=== PATIENT | male | born 1955 | race Caucasian/White ===

== ENCOUNTER → 2016-06-14 08:49 | Outpatient (CLI) | payer OTHER ==
[2015-05-13 11:35] VITALS: BMI 41.4
[~2016-06-14 08:49] MED LIST: BAYER CHEWABLE81 MG PO; CONTRAVE; DIOVAN HCT 320/1 TAB PO; DIOVAN160 MG PO; GLUCOPHAGE500 MG PO; INDERAL10 MG PO; MOBIC7.5 MG PO; NORVASC5 MG PO; PAXIL20 MG PO; PLAVIX75 MG PO; PROTONIX20 MG PO; RANEXA500 MG PO; ROBAXIN500 MG; TENORMIN50 MG PO
[2016-06-14 09:51] LABS: BILIRUBIN - DIRECT 0.08 mg/dL (0.00-0.30); BILIRUBIN - INDIRECT 0.43 mg/dL (0.00-1.00); BILIRUBIN - TOTAL 0.51 mg/dL (0.2-1.3); PROTEIN - SERUM 7.1 g/dL (6.4-8.2)
== END | disposition home or self-care (01) ==
LOC: D.US 08:49
PROVIDERS: Internal Medicine Gastroenterology
DX: R74.8 Abnormal levels of other serum enzymes (principal)

== ENCOUNTER → 2016-06-15 09:04 | Outpatient (CLI) | payer OTHER ==
[2015-05-13 11:35] VITALS: BMI 41.4
[2016-06-15 10:16] LABS: AMYLASE - SERUM 36 U/L (25-115); LIPASE 193 U/L (73-393)
== END | disposition home or self-care (01) ==
LOC: D.LAB 08:00
PROVIDERS: Internal Medicine Gastroenterology
DX: K76.0 Fatty (change of) liver, not elsewhere classified (principal)

== ENCOUNTER → 2016-06-28 08:13 | Outpatient (CLI) | payer OTHER ==
[2015-05-13 11:35] VITALS: BMI 41.4
== END | disposition home or self-care (01) ==
LOC: D.CT 08:13
DX: R10.9 Unspecified abdominal pain (principal)

== ENCOUNTER → 2016-07-09 09:05 | Outpatient (CLI) | payer OTHER ==
[2015-05-13 11:35] VITALS: BMI 41.4
== END | disposition home or self-care (01) ==
LOC: D.NM 09:05
DX: R10.9 Unspecified abdominal pain (principal)

== ENCOUNTER 2016-08-19 09:50 | Outpatient (CLI) | payer OTHER ==
[~2016-08-19] VITALS: Ht 175.3 cm; Wt 130.2 kg
--- NOTE | ~2016-08-19 | HEMODYNAMI ---
PATIENT:EVER MAS MEDICAL RECORD: [id number] : 59 LOCATION:[facility].[address] [id number] ADMISSION DATE: 08/19/16 Generatedon:08/20/201612:46 Patient name: EVER MAS Patient #: [id number] SSN: : 1955 Date of study: 08/20/2016 Page: Of Hemodynamic Procedure Report Patient Data Patient Demographics Procedure consent was obtained First Name: EVER Gender: Male Last Name: CHACE : 1955 [facility] Initial: LEOPOLDO Age: 61 year(s) Patient #: [id number] Race: Additional ID: [id number] Contact details [address]: [address] [place] [address] State: [place] City: [place] Zip code: [address] Past Medical History History of disease Date Diagnosis Comments CAD Allergies: No allergy information Admission Admission Data Admission Date: 08/19/2016 Admission Time: 9:50 Room #: 2114 Height (in.): 69 BSA: 2.41 (m2) Height (cm.): 175.26 BMI: 42.4 (kg/m2) Weight (lbs.): 287.11 Weight (kg.): 130.23 Procedure Procedure Types Cath Procedure Diagnostic Procedure [facility] w/Coronaries FFR/IVUS Intra-Coronary IVUS Initial PCI Procedure Coronary Stent Initial Miscellaneous Procedures Moderate Sedation up to 30 minutes Procedure Description Procedure Date Procedure Date: 08/20/2016 Procedure Start Time: 12:25 Procedure End Time: 12:46 Procedure Staff Name Function Horace Cloud MD Performing Physician Zak Conn RT Scrub Mitchel Alvarez RN Nurse Anusha Kaufman RT Monitor Procedure Data Cath Procedure Fluoroscopy Diagnostic fluoroscopy Total fluoroscopy Time: 4.1 time: 4.1 min min Diagnostic fluoroscopy Total fluoroscopy dose: dose: 1276 mGy 1276 mGy Contrast Material Contrast Material Type Amount (ml) Isovue 300 109 Entry Location Entry Primary Successful Side Size Upsize Upsize Entry Closure Lea ccessful Closure Location (Fr) 1 (Fr) 2 (Fr) Remarks Device Remarks Radial Right 6 Fr Mechanical artery Short Compression Estimated blood loss: 10 ml Diagnostic catheters Device Type Used For End Catheter Placement Diagnostic Terumo 5Fr LV Angiography [place] 110cm catheter Diagnostic Terumo 5Fr Right Coronary [place] 110cm catheter Angiography Procedure Complications No complications Procedure Medications Medication Administration Route Dosage Oxygen NC 2 l/min Lidocaine 2% added to field 20 Heparin Flush Bag added to field 2 bags (1000units/500ml NS) 0.9% NaCl I.V. 100 ml/hr Radial Cocktail I.A. 1 syringe (Verapomil 2mg/Nitro 400mcg/Heparin 1500units) Versed I.V. 1 mg Fentanyl I.V. 50 mcg Versed I.V. 1 mg Fentanyl I.V. 50 mcg Heparin Bolus I.V. 4000 units Versed I.V. 0.5 mg Fentanyl I.V. 25 mcg Plavix P.O. 75 mg Aspirin P.O. 325 mg Hemodynamics Rest BSA: 2.41 (m2) O2 Consumption: Estimated: 285.74 (ml/min) O2 Consumption indexed : Estimated:118.56 (ml/min/m) Heart Rate: 72 (bpm) Pressure Samples Time Site Value (mmHg) Purpose Heart Use Rate(bpm) 12:28 LV 92/34,37 Snapshot 98 Snapshots Pre Cath Intra NCS Post Cath Vital Signs Time Heart Resp SPO2 etCO2 [id number] NIBP (mmHg) Rhythm Pain Sedation Rate (ipm) (%) (mmHg) (mmHg) Status Level (bpm) 12:16:09 70 16 98 0 0 147/91(115) NSR 0 (11) 10(A) , No pain 12:20:25 69 18 96 0 0 146/98(119) NSR 0 (11) 10(A) , No pain 12:24:37 70 16 94 0 0 145/95(126) NSR 0 (11) 10(A) , No pain 12:28:39 75 18 95 0 0 115/93(108) NSR 0 (11) 9(A) , No pain 12:32:43 78 18 93 0 0 129/94(125) NSR 0 (11) 9(A) , No pain 12:37:50 74 15 94 0 0 119/92(112) NSR 0 (11) 9(A) , No pain 12:41:58 77 16 94 0 0 138/87(118) NSR 0 (11) 10(A) , No pain 12:46:16 72 11 96 0 0 129/76(108) NSR 0 (11) 10(A) , No pain Medications Time Medication Route Dose Verified Delivered Reason Note s Effectiveness by by 12:12:47 Oxygen NC 2 l/min Horace Buffie used for Ai Alvarez RN procedure 12:12:55 Lidocaine 2% added 20ml Horacerey Vu for local to vial Ai Cloud MD anesthetic field 12:13:00 Heparin Flush added 2 bags Horace Vu used for Bag to Ai Cloud MD procedure (1000units/500ml field NS) 12:13:08 0.9% NaCl I.V. 100 Horace Buffie Per physician ml/hr Ai Alvarez RN 12:24:26 Versed I.V. 1 mg Horace Grullon for sedation Ai Alvarez RN 12:24:33 Fentanyl I.V. 50 mcg Horace Grullon for sedation Ai Alvarez RN 12:27:16 Radial Cocktail I.A. 1 Horace Vu for (Verapomil syringe Ai Cloud MD vasodilation 2mg/Nitro 400mcg/Heparin 1500units) 12:28:02 Versed I.V. 1 mg Horace Buffie for sedation Ai Alvarez RN 12:28:06 Fentanyl I.V. 50 mcg Horace Gomezie for sedation Ai Alvarez RN 12:33:27 Heparin Bolus I.V. 4000 Horace Grullon for units Ai Alvarez RN anticoagulation 12:36:50 Versed I.V. 0.5 mg Horace Buffie for sedation Ai Alvarez RN 12:36:54 Fentanyl I.V. 25 mcg Horace Gomezie for sedation Ai Alvarez RN 12:42:20 Plavix P.O. 75 mg Horace Gomezie for Ai Alvarez RN antiplatelet therapy 12:42:42 Aspirin P.O. 325 mg Horace Grullon for Ai Alvarez RN antiplatelet therapy Procedure Log Time Note 11:53:53 Informed consent obtained and on chart 11:54:16 Anusha Kaufman RT(R) sent for patient. Start room use. 11:54:17 Time tracking: Regular hours 11:54:21 Plan of Care:Hemodynamics will remain stable., Cardiac rhythm will remain stable., Comfort level will be maintained., Respiratory function will remain adequate., Patient/ family verbilizes understanding of procedure., Procedure tolerated without complication., Recovers from procedure without complications.. 12:04:51 Patient received from PCU to CCL 1 Alert and oriented. Tansferred to table in Supine position. 12:12:47 Oxygen 2 l/min NC was administered by Mitchel Alvarez RN; used for procedure; 12:12:55 Lidocaine 2% 20ml vial added to field was administered by Horace Cloud MD; for local anesthetic; 12:13:00 Heparin Flush Bag (1000units/500ml NS) 2 bags added to field was administered by Horace Cloud MD; used for procedure; 12:13:08 0.9% NaCl 100 ml/hr I.V. was administered by Mitchel Alvarez RN; Per physician; 12:14:58 Warm blankets applied, and madhuri hugger turned on for patient comfort. 12:14:58 Correct patient and procedure confirmed by team. 12:14:59 ECG and BP/O2 sat monitors applied to patient. 12:15:00 Vital chart was started 12:15:01 Baseline sample Acquired. 12:15:04 Rhythm: sinus rhythm 12:15:06 Full Disclosure recording started 12:15:22 H&P Date Dictated: 08/19/2016 Within 30 days and on chart.. 12:15:23 Pre-procedure instructions explained to patient. 12:15:23 Pre-op teaching completed and patient verbalized understanding. 12:15:24 Family in waiting room. 12:15:26 Patient NPO since Midnight. 12:15:36 Patient allergic to No allergy information 12:15:39 Is the patient allergic to Iodine/contrast media? No. 12:15:41 Is patient on blood thinner?No 12:15:47 Patient diabetic? Yes. 12:15:48 If diabetic: On Metformin? Yes 12:15:50 If on Metformin: Last Dose? 08/19/2016 12:15:54 Previous problem with sedation/anesthesia? No ? 12:15:55 Snore? Yes 12:15:56 Sleep apnea? No 12:15:57 Deviated septum? No 12:15:58 Opens mouth fully? Yes 12:15:59 Sticks out tongue? Yes 12:16:00 Airway obstruction? No ? 12:16:03 Dentures? Yes In 12:16:06 Pre procedure: right dorsailis pedis pulse 2+ Normal; easily identifiable; not easily obliterated 12:16:10 Modified Chevy's test Ulnar < 7 seconds 12:16:14 Patient pain scale 0/10 ?. 12:16:21 IV patent on arrival in left hand with 0.9% NaCl at [facility]. 12:17:23 Patient Height : 69 cm 12:17:32 Patient Weight : 287.11 kg 12:18:58 Right Radial & Right Groin area was prepped with chlora-prep and draped in sterile fashion 12:19:01 Alarms reviewed by R. N. 12:19:01 Sharps counted by scrub and verified by R.N. 12:19:07 Use device set Radial Dx 12:19:08 Acist Syringe opened to sterile field. 12:19:08 Medline Cath Pack opened to sterile field. 12:19:09 Bag Decanter opened to sterile field. 12:19:09 Terumo 6Fr Slender Glidesheath opened to sterile field. 12:19:09 [place] Mckin[place] 260cm J .035 wire opened to sterile field. 12:19:10 Acist Hand Control opened to sterile field. 12:19:10 Acist Manifold opened to sterile field. 12:19:11 Tegaderm 4 x 4 opened to sterile field. 12:19:11 MBrace Wrist Support opened to sterile field. 12:22:48 Final Timeout: patient, procedure, and site verified with staff and physician. All members of the team are in agreement. 12:22:53 Right Radial site verified by team. 12:22:55 Physical assessment completed. ASA score P 2 - A patient with mild systemic disease as per Horace Cloud MD. 12:22:57 Sedation plan: IV Moderate Sedation Versed, Fentanyl 12:23:06 Lab results pending. 12:24:26 Versed 1 mg I.V. was administered by Mitchel Alvarez RN; for sedation; 12:24:33 Fentanyl 50 mcg I.V. was administered by Mitchel Alvarez RN; for sedation; 12:25:20 Procedure started. 12:25:36 Zero performed for pressure channel P1 12:25:51 Local anesthetic to right radial artery with Lidocaine 2% by Horace Cloud MD.INITIAL ACCESS ONLY 12:26:22 A 6 Fr Short sheath was inserted into the Right Radial artery 12:27:10 A Diagnostic Terumo 5Fr [place] 110cm catheter was advanced over the wire and used for LV Angiography. 12:27:16 Radial Cocktail (Verapomil 2mg/Nitro 400mcg/Heparin 1500units) 1 syringe I.A. was administered by Horace Cloud MD; for vasodilation; 12::02 Versed 1 mg I.V. was administered by Mitchel Alvarez RN; for sedation; 12::06 Fentanyl 50 mcg I.V. was administered by Mitchel Alvarez RN; for sedation; 12:: LV gram done using MCKNIGHT 12::12 Injector settings: Ml/sec: 5, Volume: 15, 12:28:18 EF : 55 % 12:28:34 A Diagnostic Terumo 5Fr [place] 110cm catheter was advanced over the wire and used for Right Coronary Angiography. 12:28:56 Cordis 6FR XBLAD 3.5 guide catheter opened to sterile field. 12:29:08 Catheter removed. 12:30:04 6 Fr XBLAD 3.5 guide catheter was inserted over the wire 12:31:03 LCA angiography performed. 12:31:58 Compliance Control BasixCompak Inflation Kit opened to sterile field. 12:31:59 Forde Whisper J 300cm 0.014 guide wire opened to sterile field. 12:32:37 [place] IVUS Catheter opened to sterile field. 12:33:27 Heparin Bolus 4000 units I.V. was administered by Mitchel Alvarez RN; for anticoagulation; 12:33:40 Whisper wire advanced. 12:34:16 IVUS catheter advanced over wire. 12:36:50 Versed 0.5 mg I.V. was administered by Mitchel Alvarez RN; for sedation; 12:36:54 Fentanyl 25 mcg I.V. was administered by Mitchel Alvarez RN; for sedation; 12:37:08 IVUS pass to LAD lesion performed. 12:37:09 IVUS catheter removed over wire. 12:38:27 Inflation Number: 1 A Biofreedom 4.0 X 28 stent (No Cost Implant) was prepped and advanced across the Prox LAD. The stent was deployed at 11 GUERO for 0:04 (min:sec). 12:38:44 Stent catheter was removed intact over wire. 12:38:44 Wire removed. 12:38:45 Guide catheter removed. 12:39:05 Sheath removed intact; hemostasis achieved with Mechanical Compression to the Right Radial artery. 12:39:21 Procedure ended.(Physican Out) 12:39:35 Terumo TR Band Standard opened to sterile field. 12:41:04 Fluoroscopy time 04.10 minutes. 12:41:08 Flurop Dose total: 1276 12:41:08 Fluoroscopy dose: 1276 mGy 12:41:16 Contrast amount:Isovue 300 109ml. 12:41:17 Sharps counted by scrub and verified by R.N. 12:41:21 TR band inflated with 12cc of air. 12:41:22 Insertion/operative site no bleeding no hematoma. 12:41:29 Post right radial artery:stable, clean and dry 12:41:30 Post Procedure Pulses reassessed and unchanged 12:41:33 Post-procedure physical assessment completed. ASA score P 2 - A patient with mild systemic disease as per Horace Cloud MD. 12:41:36 Post procedure rhythm: unchanged. 12:41:38 Estimated blood loss: 10 ml 12:41:40 Post procedure instruction explained to patient.Patient verbalizes understanding. 12:41:40 Patient needs reinforcement of post procedure teaching. 12:41:58 Procedure type changed to Cath procedure, Diagnostic procedure, LHC, LHC w/Coronaries, FFR/IVUS, Intra-Coronary IVUS Initial, PCI procedure, Coronary Stent Initial, Miscellaneous Procedures, Moderate Sedation up to 30 minutes 12:42:12 Procedure Complication : No complications 12:42:20 Plavix 75 mg P.O. was administered by Mitchel Alvarez RN; for antiplatelet therapy; 12:42:42 Aspirin 325 mg P.O. was administered by Mitchel Alvarez RN; for antiplatelet therapy; 12:44:06 Procedure and supply charges have been captured, reviewed, submitted and are correct. 12:44:07 See physician's report for complete and final results. 12:46:12 Vital chart was stopped 12:46:14 Report given to Pre/Post Procedure Room. 12:46:18 Patient transfered to Pre/Post Procedure Room with Stretcher. 12:46:26 Procedure ended. 12:46:26 Full Disclosure recording stopped 12:46:30 End room use (Document Last) Intervention Summary Intervention Notes Time ActionType Lesion and Equipment Action# Pressure Duration Attributes Used 12:38:27 Place stent Prox LAD Biofreedom 1 11 00:04 4.0 X 28 stent (No Cost Implant) Device Usage Item Name Manufacture Quantity Catalog Hospital Part Current Minimal Lot# / Number Charge Number Stock Stock Serial# Code Acist Acist 1 39889 529955 373950 134879 20 Syringe Medical Systems Inc Medline Cardinal 1 [id number] 134182 86373 221829 5 Cath Pack Health Bag Microtek 1 2002S 507855 54900 072303 5 Decanter Medical Inc. Terumo 6Fr Terumo 1 [id number] 140844 350326 757975 [address] [place] [address] Mckinley 1 930320 951926 315559 975671 30 260cm J .035 wire Acist Hand Acist 1 85446 036266 870001 189170 5 Control Medical Systems Inc Acist Acist 1 21995 603365 166273 499086 5 Manifold Medical Systems Inc Tegaderm 4 3M 1 1626W 794614 459746 251797 5 x 4 MBrace Advanced 1 140-0250-00 207815 87993 878830 5 Wrist Vascular Support Dynamics Diagnostic Terumo 1 99-7851 769906 622813 024471 5 Terumo 5Fr Hartford 110cm catheter Cordis 6FR Cardinal 1 [id number] 959609 445752 676418 10 XBLAD 3.5 Health guide catheter Merit Merit 1 KN0090 667209 190935 927216 15 BasixCompak Medical Inflation Kit [place] 1 [id number] 507837 831161 897096 5 Whisper J Vascular 300cm 0.014 guide wire [place] 1 09489Y 104352 431511 579195 8 [place] IVUS Catheter Biofreedom Biosensors 1 [facility]2-0218 022259 312817 5 [id number] 4.0 X 28 [place] SA stent (No Cost Implant) Terumo TR Terumo 1 [id number] 461720 630868 047449 40 Band Standard Signature Audit [place] Stage Time Signature Unsigned Intra-Procedure 08/20/2016 Anusha 12:46:40 PM Counts RT(R) Signatures Monitor : Anusha Signature : Counts RT Date : Time : [facility] [address] [place] [address]
[~2016-08-19 09:50] MED LIST changes: -ROBAXIN500 MG; +ROBAXIN500 MG PO
[2016-08-19 10:37] LABS: TROPONIN-I < 0.017 ng/mL (0.000-0.060)
[2016-08-19 10:41] LABS: BASOPHILS 0.4 % (0-2); EOSINOPHILS 3.3 % (0-7); HEMATOCRIT 41.2 % (42.0-54.0); HEMOGLOBIN 14.3 g/dL (13.5-17.5); IMMATURE GRANULOCYTES 0.5 % (0-5); LYMPHOCYTES 20.7 % (15-50); MCH 30.2 pg (26.0-34.0); MCHC 34.7 g/dL (31.0-37.0); MCV 86.9 fL (80.0-100.0); MEAN PLATELET VOLUME 9.2 fL (7.4-10.4); NEUTROPHILS 69.1 % (40-80); PLATELET COUNT 218 10x3/uL (130-400); RBC 4.74 10x6/uL (4.20-6.10); RDW 12.7 % (11.5-14.5); WBC 7.4 10x3/uL (4.8-10.8)
[2016-08-19 10:49] LABS: ALBUMIN 4.1 g/dL (3.4-5.0); ANION GAP 13.9 mmol/L (8-16); BILIRUBIN - TOTAL 0.73 mg/dL (0.2-1.3); CALCIUM 9.2 mg/dL (8.5-10.1); CARBON DIOXIDE 26.6 mmol/L (21.0-32.0); CREATININE - SERUM 1.1 mg/dL (0.6-1.3); POTASSIUM - SERUM 4.5 mmol/L (3.5-5.1)
[2016-08-19] MEDS ORDERED: FISH OIL 1,0001 CA1 PO (13:07)
[2016-08-19 13:08] VITALS: BP 136/86; Ht 175.3 cm; Wt 130.2 kg
--- NOTE | 2016-08-19 15:36 | NUR ---
1350-RECIEVED VIA WHEELCHAIR TO ROOM FROM THE ED WITH SHORTNESS OF BREATH AND C/P. DENIES ANY AT THIS TIME OF THE ABOVE. STATES THAT HE HAD A STRESS TEST LAST WEEK AND WAS SUPPOSE TO HAVE A PROCEDURE WITH DR RAI THIS COMING SATURDAY. SALINE LOCK SEEN TO RIGHT AC, FLUSHES EASILY. ON 2L PER NC. WILL MONITOR.
[2016-08-19 15:56] VITALS: BP 124/60
--- NOTE | 2016-08-19 18:29 | NUR ---
DENIES NEEDS AT PRESENT TIME. WILL BE NPO PAST MIDNIGHT.
--- NOTE | 2016-08-19 19:00 | NUR ---
INITIAL ROUNDS MADE. PT SITTING UP IN BED WATCHING TV. DENIES NEEDS EXCEPT REQUESTING A FAN. NO CP OR SOB AT THIS TIME. WILL CONT TO MONITOR. CALL LIGHT IN REACH.
[2016-08-19 21:30] VITALS: BP 138/74
--- NOTE | 2016-08-19 22:48 | NUR ---
UP TO SHOWER WITH ASSIST
[2016-08-20 00:55] VITALS: BP 121/53
--- NOTE | 2016-08-20 05:49 | NUR ---
RESTING WELL WITH EYES CLOSED, CONT TO MONITOR.
[2016-08-20 05:55] VITALS: BP 124/80
[2016-08-20 08:00] VITALS: BP 149/91
--- NOTE | 2016-08-20 09:16 | NUR ---
RESTS IN BED. AT BS. NPO FOR [facility]. PRE-OPS GIVEN. WILL CONT. PLAN OF CARE.
--- NOTE | 2016-08-20 10:11 | HP ---
PATIENT: EVER MAS MEDICAL RECORD: [id number] ACCOUNT: [id number] LOCATION:[facility] D.2114 : 59 ADMISSION DATE: 08/19/16 HISTORY AND PHYSICAL EXAMINATION DIAGNOSES: 1. Unstable angina. 2. Coronary artery disease. 3. Previous percutaneous transluminal coronary angioplasty stent. 4. Hypertension. 5. Hyperlipidemia. 6. Chronic NSAID therapy with meloxicam. HISTORY OF PRESENT ILLNESS: This is a gentleman with a past cardiac history cardiac stenting 2 years ago, has been having increasing episodes of chest pain, chest discomfort compatible with angina. He now presents with continued angina. PHYSICAL EXAMINATION: GENERAL APPEARANCE: Well-nourished, well-developed, appears stated age. Level of distress, comfortable. PSYCHIATRIC: Mental status, alert, normal affect. Orientation, oriented to time, place and person. EYES: Lids and conjunctiva, noninjected. No discharge, no pallor. ENT: Lips, teeth, gums, normal dentition. Oropharynx, no cyanosis, no pallor. NECK: Carotid arteries, bilateral normal upstroke, no bruits, no thrills. JUGULAR VEINS: No jugular venous pressure or distention. CERVICAL LYMPH NODES: Nontender, nonenlarged. THYROID: Not enlarged. Nontender. No nodules. LUNGS: Respiratory effort, unlabored. CHEST: Normal curvature. No thoracic deformity. No chest wall tenderness. Percussion, resonant. Auscultation, clear. No wheezes, no rales, no rhonchi. CARDIOVASCULAR: Precordial exam, nondisplaced. No heaves or pericardial thrills. Rate and rhythm, regular. Heart sounds, normal S1, normal S2. No S3, no gallop, no rub. Systolic murmur, not heard. Diastolic murmur, not heard. EXTREMITIES: No cyanosis, no edema. Peripheral pulses, full and equal in all extremities, except as noted. No bruits appreciated. ABDOMEN: Soft, nondistended. Normal aorta. No bruit. Nontender. No masses. Liver, nontender, no hepatomegaly. Spleen, nontender, no splenomegaly. MUSCULOSKELETAL: No joint tenderness. No joint swelling. No erythema. NEUROLOGICAL: Normal gait, normal strength, normal tone. SKIN: Warm and dry. REVIEW OF SYSTEMS: The patient reports easy bruising but reports no swollen glands. The patient reports no fever, no night sweats, no significant weight gain, no significant weight loss. No significant exercise tolerance. The patient reports no dry eyes, no irritation, no vision change. Patient reports no difficulty hearing and no ear pain. Patient reports no frequent nose bleeds or nose and sinus problems. Patient reports on arm pain on exertion. No shortness of breath while lying down. No history of heart murmur. Patient reports no cough, no wheezing or coughing up blood. Patient reports no abdominal pain, no vomiting. Normal appetite. No diarrhea and not vomiting blood. No nausea and no constipation. Patient reports no incontinence. No difficulty urinating. No hematuria. No increased frequency. Patient reports no muscle aches. No weakness, no arthralgias, no back pain. No swelling of the extremities. Patient reports no abnormal mole, no jaundice, no rashes. Reports HISTORY AND PHYSICAL [id number] EVER MAS no loss of consciousness. No weakness and no numbness. No seizures, dizziness, or headaches. The patient reports no depression, no sleep disturbance, feeling safe in a relationship and no alcohol abuse. Patient reports on fatigue. Reports no runny nose or sinus pressure. No itching, no hives, and no frequent sneezing. OVERALL IMPRESSION: Chest pain compatible with angina. We will proceed with coronary angiography. Further care depends upon findings of the angiography. TRANSINT:[id number] Voice Confirmation ID: [id number] DOCUMENT ID: [id number] MICHELLE RAI MD at 1011 CC: [id number] DICTATION DATE: 08/19/16 1224 SOFT IRON INSPECTOR: 08/19/16 1338 [facility] [address] [place] [address]
--- NOTE | 2016-08-20 12:00 | NUR ---
PRE-OPS GIVEN. TO VIDEO OPERATOR BY BED.
[2016-08-20 12:23] LABS: CKMB 1.4 U/L (0.0-3.6); CREATINE KINASE 102 UL (21-232)
[2016-08-20 12:38] VITALS: BP 146/89
--- NOTE | 2016-08-20 13:18 | NUR ---
BACK FROM C IRON WORKER. VS WNL. RIGHT WRIST STABLE WITH TR BAND INTACT. WILL MONITOR.
[2016-08-20] MEDS ORDERED: PLAVIX75 MG PO (15:36)
[2016-08-20 16:33] VITALS: BP 116/71
--- NOTE | 2016-08-20 17:06 | NUR ---
TR BAND DCD WITHOUT BLEEDING OR HEMATOMA NOTED. IV AND TELEMETRY DCD. DC PLANS GIVEN. UNDERSTANDING VOICED. ESCORTED TO CAR BY W/C.
== END 2016-08-20 17:25 | disposition home or self-care (01) ==
LOC: D.M2 09:50 → D.ER 09:50 → D.OPS 09:50 → EDSTATUS 12:02 → D.M2 12:03 → D.OPS 08-20 17:25
PROVIDERS: Emergency Medicine; Nurse Practitioner Family
DX: I25.110 Atherosclerotic heart disease of native coronary artery with unstable angina pectoris (principal); Z95.5 Presence of coronary angioplasty implant and graft; I10 Essential (primary) hypertension; E78.5 Hyperlipidemia, unspecified; Z00.6 Encounter for examination for normal comparison and control in clinical research program; Z01.812 Encounter for preprocedural laboratory examination

== ENCOUNTER → 2016-12-14 07:06 | Outpatient (CLI) | payer OTHER ==
--- NOTE | ~2016-12-14 | HEMODYNAMI ---
PATIENT:EVER MAS MEDICAL RECORD: [id number] : 59 LOCATION:[facility] ADMISSION DATE: 12/14/16 Generatedon:12/14/20169:48 Patient name: EVER MAS Patient #: [id number] SSN: : 1955 Date of study: 12/14/2016 Page: Of Hemodynamic Procedure Report Patient Data Patient Demographics Procedure consent was obtained First Name: EVER Gender: Male Last Name: CHACE : 1955 [facility] Initial: LEOPOLDO Age: 61 year(s) Patient #: [id number] Race: Additional ID: [id number] Contact details [address]: [address] [place] [address] State: [place] City: [place] Zip code: [address] Past Medical History History of disease Date Diagnosis Comments CAD Allergies: No known allergies Admission Admission Data Admission Date: 12/14/2016 Admission Time: 7:06 Lab Results Lab Result Date: 12/14/2016 Lab Result Time: 0:00 Biochemistry Name Units Result Min Max BUN mg/dl 18 --(---*)-- 7 18 Creatinine mg/dl 1.1 --(--*-)-- 0.6 1.3 CBC Name Units Result Min Max Hemoglobin g/dl 14.3 --(*---)-- 13.5 17.5 Procedure Procedure Types Cath Procedure Diagnostic Procedure LHC LH w/Coronaries Procedure Description Procedure Date Procedure Date: 12/14/2016 Procedure Start Time: 9:36 Procedure End Time: 9:47 Procedure Staff Name Function Horace Cloud MD Performing Physician Anusha Kaufman RT Scrub Felix Meadows RN Nurse Cali Gloria RT Monitor Procedure Data Cath Procedure Fluoroscopy Diagnostic fluoroscopy Total fluoroscopy Time: 1.5 time: 1.5 min min Diagnostic fluoroscopy Total fluoroscopy dose: dose: 1007 mGy 1007 mGy Contrast Material Contrast Material Type Amount (ml) Isovue 300 76 Entry Location Entry Primary Successful Side Size Upsize Upsize Entry Closure Lea ccessful Closure Location (Fr) 1 (Fr) 2 (Fr) Remarks Device Remarks Radial Right 6 Fr Mechanical artery Short Compression Estimated blood loss: 10 ml Diagnostic catheters Device Type Used For End Catheter Placement Diagnostic Terumo 5Fr Procedure Distant 110cm catheter Procedure Medications Medication Administration Route Dosage Oxygen NC 2 l/min Heparin Flush Bag added to field 2 bags (1000units/500ml NS) 0.9% NaCl I.V. ml/hr Fentanyl I.V. 50 mcg Versed I.V. 1 mg Radial Cocktail added to field 1 syringe (Verapomil 2mg/Nitro 400mcg/Heparin 1500units) Radial Cocktail I.A. 1 syringe (Verapomil 2mg/Nitro 400mcg/Heparin 1500units) Fentanyl I.V. 50 mcg Versed I.V. 1 mg Hemodynamics Rest HGB: 14.3 (g/dl) Heart Rate: 81 (bpm) Pressure Samples Time Site Value (mmHg) Purpose Heart Use Rate(bpm) 9:38 AO 98/27(47) Snapshot 90 Snapshots Pre Cath Intra NCS Post Cath Vital Signs Time Heart Resp SPO2 NIBP (mmHg) Rhythm Pain Sedation Rate (ipm) (%) Status Level (bpm) 9:18:39 79 21 99 141/89(109) NSR 0 (11) 10(A) , No pain 9:22:59 73 19 99 138/88(108) NSR 0 (11) 10(A) , No pain 9:27:19 76 18 100 138/85(119) NSR 0 (11) 10(A) , No pain 9:31:34 76 16 100 139/88(109) NSR 0 (11) 10(A) , No pain 9:35:49 81 18 99 139/92(123) NSR 0 (11) 10(A) , No pain 9:40:03 82 20 93 119/84(100) NSR 0 (11) 9(A) , No pain 9:44:14 85 19 95 125/93(107) NSR 0 (11) 9(A) , No pain Medications Time Medication Route Dose Verified Delivered Reason Notes Effe ctiveness by by 9:19:05 Oxygen NC 2 l/min Horace Washington Per Ai Meadows RN physician 9:21:05 Heparin Flush added 2 bags Horace Felix used for Bag to Ai Meadows RN procedure (1000units/500ml field NS) 9:21:12 0.9% NaCl I.V. ml/hr Horace Washington Per Ai Meadows RN physician 9:34:51 Fentanyl I.V. 50 mcg Horace Washington for Ai Meadows RN sedation 9:34:57 Versed I.V. 1 mg Horace Washington for Ai Meadows RN sedation 9:36:52 Radial Cocktail added 1 Horace Washington used for (Verapomil to syringe Ai Meadows RN procedure 2mg/Nitro field 400mcg/Heparin 1500units) 9:38:09 Radial Cocktail I.A. 1 Horace Horace used for (Verapomil syringe Ai Cloud MD procedure 2mg/Nitro 400mcg/Heparin 1500units) 9:38:17 Fentanyl I.V. 50 mcg Horace Washington for Ai Meadows RN sedation 9:38:22 Versed I.V. 1 mg Horace Washington for Ai Meadows RN sedation Procedure Log Time Note 9:00:03 Felix Meadows RN sent for patient. Start room use. 9:10:04 Time tracking: Regular hours 9:10:08 Plan of Care:Hemodynamics will remain stable., Cardiac rhythm will remain stable., Comfort level will be maintained., Respiratory function will remain adequate., Patient/ family verbilizes understanding of procedure., Procedure tolerated without complication., Recovers from procedure without complications.. 9:10:46 Patient received from Pre/Post Procedure Room to [facility] Alert and oriented. Tansferred to table in Supine position. 9:10:47 Warm blankets applied, and madhuri hugger turned on for patient comfort. 9:10:47 Correct patient and procedure confirmed by team. 9:10:48 Signed procedure consent form obtained from patient. 9:10:49 ECG and BP/O2 sat monitors applied to patient. 9:10:51 Full Disclosure recording started 9:17:27 Vital chart was started 9:17:28 Baseline sample Acquired. 9:17:35 Rhythm: sinus rhythm 9:19:05 Oxygen 2 l/min NC was administered by Felix Meadows RN; Per physician; 9:21:05 Heparin Flush Bag (1000units/500ml NS) 2 bags added to field was administered by Felix Meadows RN; used for procedure; 9:21:12 0.9% NaCl ml/hr I.V. was administered by Felix Meadows RN; Per physician; 9:29:22 H&P Date Dictated: 12/14/2016 Within 30 days and on chart., New H&P dictated by physician.. 9:29:23 Pre-procedure instructions explained to patient. 9:29:24 Pre-op teaching completed and patient verbalized understanding. 9:29:26 Family in waiting room. 9:29:29 Patient NPO since Midnight. 9:29:39 Patient allergic to No known allergies 9:29:44 Is the patient allergic to Iodine/contrast media? No. 9:30:00 Is patient on blood thinner?No 9:30:05 Patient diabetic? No. 9:30:28 ----Pre-sedation anethsthesia assessment.---- 9:30:35 Previous problem with sedation/anesthesia? No ? 9:30:36 Snore? Yes 9:30:41 Sleep apnea? Yes 9:30:44 If diabetic: On Metformin? Yes 9:30:47 If on Metformin: Last Dose? 12/14/2016 9:31:16 PATIENT TOLD TO HOLD METFORMIN FOR NEXT TWO DAYS 9:31:19 Deviated septum? No 9:31:20 Opens mouth fully? Yes 9:31:22 Sticks out tongue? Yes 9:31:24 Airway obstruction? No ? 9:31:30 Dentures? Yes IN TIGHT 9:31:34 Pre procedure: right dorsailis pedis pulse 1+ Palpable, but thready & weak; easily obliterated 9:31:38 Patient pain scale 0/10 ?. 9:31:44 IV patent on arrival in left wrist with 0.9% NaCl at O. 9:32:18 Lab Result : BUN 18 mg/dl 9:32:18 Lab Result : Hemoglobin 14.3 g/dl 9:32:18 Lab Result : Creatinine 1.1 mg/dl 9:33:39 Lab results completed and on chart. 9:33:44 Right Radial & Right Groin area was prepped with chlora-prep and draped in sterile fashion 9:33:45 Alarms reviewed by R. N. 9:33:46 Sharps counted by scrub and verified by R.N. 9:34:03 Use device set Radial Dx 9:34:04 Acist Syringe opened to sterile field. 9:34:05 Medline Cath Pack opened to sterile field. 9:34:06 Bag Decanter opened to sterile field. 9:34:06 Terumo 6Fr Slender Glidesheath opened to sterile field. 9:34:07 [facility] Mckinley 260cm J .035 wire opened to sterile field. 9:34:08 Acist Hand Control opened to sterile field. 9:34:08 Acist Manifold opened to sterile field. 9:34:10 Tegaderm 4 x 4 opened to sterile field. 9:34:10 MBrace Wrist Support opened to sterile field. 9:34:21 Physician arrived 9:34:22 --------ALL STOP TIME OUT------ 9:34:23 Final Timeout: patient, procedure, and site verified with staff and physician. All members of the team are in agreement. 9:34:25 Right Radial & Right Groin site verified by team. 9:34:28 Physical assessment completed. ASA score P 2 - A patient with mild systemic disease as per Horace Cloud MD. 9:34:34 Sedation plan: IV Moderate Sedation Versed, Fentanyl 9:34:51 Fentanyl 50 mcg I.V. was administered by Felix Meadows RN; for sedation; 9:34:57 Versed 1 mg I.V. was administered by Felix Meadows RN; for sedation; 9:34:57 Zero performed for pressure channel P1 9:36:36 Procedure started. 9:36:42 Local anesthetic to right radial artery with Lidocaine 2% by Horace Cloud MD.INITIAL ACCESS ONLY 9:36:52 Radial Cocktail (Verapomil 2mg/Nitro 400mcg/Heparin 1500units) 1 syringe added to field was administered by Felix Meadows RN; used for procedure; 9:37:18 A 6 Fr Short sheath was inserted into the Right Radial artery 9:37:55 A Diagnostic Terumo 5Fr Distant 110cm catheter was advanced over the wire and used for Procedure. 9:38:09 Radial Cocktail (Verapomil 2mg/Nitro 400mcg/Heparin 1500units) 1 syringe I.A. was administered by Horace Cloud MD; used for procedure; 9:38:17 Fentanyl 50 mcg I.V. was administered by Felix Meadows RN; for sedation; 9:38:22 Versed 1 mg I.V. was administered by Felix Meadows RN; for sedation; 9:38:54 LV hemodynamics recorded. 9:38:58 LV gram done using MCKNIGHT 9:39:20 EF : 55 % 9:39:37 LCA angiography performed. 9:41:03 RCA angiography performed. 9:42:09 Catheter removed. 9:42:20 Terumo TR Band Large opened to sterile field. 9:42:31 Sheath removed intact; hemostasis achieved with Mechanical Compression to the Right Radial artery. 9:42:35 Procedure ended.(Physican Out) 9:42:49 Fluoroscopy time 01.50 minutes. 9:43:03 Fluoroscopy dose: 1007 mGy 9:43:03 Flurop Dose total: 1007 9:43:09 Contrast amount:Isovue 300 76ml. 9:43:11 Sharps counted by scrub and verified by R.N. 9:44:00 TR band inflated with 10cc of air. 9:44:02 Insertion/operative site no bleeding no hematoma. 9:44:08 Post right radial artery:stable 9:44:10 Post Procedure Pulses reassessed and unchanged 9:44:11 Post Procedure Pulses reassessed and unchanged 9:44:26 Post-procedure physical assessment completed. ASA score P 2 - A patient with mild systemic disease as per Horace Cloud MD. 9:44:31 Post procedure rhythm: sinus rhythm 9:44:34 Estimated blood loss: 10 ml 9:44:36 Post procedure instruction explained to patient.Patient verbalizes understanding. 9:44:44 Patient needs reinforcement of post procedure teaching. 9:44:45 Procedure and supply charges have been captured, reviewed, submitted and are correct. 9:47:16 Vital chart was stopped 9:47:17 See physician's report for complete and final results. 9:47:19 Report given to Pre/Post Procedure Room. 9:47:23 Patient transfered to Pre/Post Procedure Room with Stretcher. 9:47:25 Procedure ended. 9:47:25 Full Disclosure recording stopped 9:47:29 End room use (Document Last) Device Usage Item Name Manufacture Quantity Catalog Hospital Part Current Minimal Lot# / Number Charge Number Stock Stock Serial# Code Acist Acist 1 42658 [id number] [id number] [id number] 20 Syringe [employer] Inc Medline Cardinal 1 [id number] 129382 74098 711625 5 Cath Pack Health Bag Microtek 1 2002S [id number] 02596 746786 5 Decanter [employer] Inc. Terumo 6Fr Terumo 1 [id number] 549447 311436 588520 [address] [place] [address] Mckinley 1 [id number] 882151 320134 804737 30 260cm J .035 wire Acist Hand Acist 1 33363 891057 918316 598148 5 Control [employer] Inc Acist Acist 1 03179 601304 238378 508680 5 Manifold Medical [employer] Inc Tegaderm 4 3M 1 1626W 875765 889216 083159 5 x 4 MBrace Advanced 1 140-0250-00 843532 46433 399848 5 Wrist Vascular Support Dynamics Diagnostic Terumo 1 72-9074 834409 864211 285294 5 Terumo 5Fr Distant 110cm catheter Terumo TR Terumo 1 [id number] 411698 872753 915183 40 Band Large Signature Audit Commercial Point Stage Time Signature Unsigned Intra-Procedure 12/14/2016 Cali Gloria 9:48:09 AM RT(R) (CV) Signatures Monitor : Cali Gloria RT Signature : Date : Time : [facility] [address] [place] [address]
[~2016-12-14 07:06] MED LIST changes: +COREG6.25 MG PO; +FISH OIL 1,0001 CA1 PO; +ZANTAC150 MG PO
[2016-12-14 07:16] VITALS: BP 139/88; BMI 41.4
[2016-12-14 07:29] LABS: BASOPHILS 0.3 % (0-2); HEMATOCRIT 40.2 % (42.0-54.0); HEMOGLOBIN 14.3 g/dL (13.5-17.5); IMMATURE GRANULOCYTES 0.4 % (0-5); LYMPHOCYTES 17.4 % (15-50); MCHC 35.6 g/dL (31.0-37.0); MEAN PLATELET VOLUME 8.9 fL (7.4-10.4); NEUTROPHILS 67.9 % (40-80); PLATELET COUNT 218 10x3/uL (130-400); RBC 4.62 10x6/uL (4.20-6.10); RDW 12.8 % (11.5-14.5); WBC 7.1 10x3/uL (4.8-10.8)
[2016-12-14 07:35] LABS: ANION GAP 14.8 mmol/L (8-16); CARBON DIOXIDE 24.5 mmol/L (21.0-32.0); CREATININE - SERUM 1.1 mg/dL (0.6-1.3); POTASSIUM - SERUM 4.3 mmol/L (3.5-5.1)
--- NOTE | 2016-12-14 10:14 | NUR ---
2L NC, NO RESP DISTRESS NOTED. RIGHT WRIST TR BAND CDI, NO BLEEDING OR HEMATOMA NOTED. NO C/O PAIN OR NAUSEA AT THIS TIME. DRINK AND SANDWICH TRAY GIVEN. VSS. FAMILY AT BEDSIDE, CALL LIGHT WITHIN REACH.
--- NOTE | 2016-12-14 10:46 | NUR ---
RIGHT WRIST TR BAND CDI, NO BLEEDING OR HEMATOMA NOTED. 2L NC, NO RESP DISTRESS NOTED. DENIES ANY PAIN OR NAUSEA. VSS. WILL CONTINUE TO MONITOR.
--- NOTE | 2016-12-14 11:00 | NUR ---
3CC OF AIR REMOVED FROM TR BAND, NO BLEEDING NOTED.
--- NOTE | 2016-12-14 11:14 | NUR ---
3CC OF AIR REMOVED FROM TR BAND, NO BLEEDING OR HEMATOMA NOTED.
--- NOTE | 2016-12-14 11:28 | NUR ---
3CC OF AIR REMOVED FROM TR BAND, NO BLEEDING NOTED.
--- NOTE | 2016-12-14 11:44 | NUR ---
LEFT HAND PIV D/C'D WITH CATHETER INTACT, BAND AID TO SITE. UP TO BEDSIDE TO GET DRESSED.
--- NOTE | 2016-12-14 11:52 | NUR ---
REMAINING AIR REMOVED FROM TR BAND, DRESSING PLACED TO SITE. DISCHARGE INSTRUCTIONS GIVEN, VERBALIZED UNDERSTANDING.
--- NOTE | 2016-12-14 11:59 | NUR ---
TAKEN OUT VIA WHEELCHAIR BY CATH PAINT ROLLER ASSEMBLER. LEFT FACILITY WITH AND ALL PERSONAL BELONGINGS.
--- NOTE | 2017-01-18 14:14 | OP ---
PATIENT NAME: EVER MAS MEDICAL RECORD: [id number] :59 LOCATION:[facility] ADMISSION DATE: SURGEON: MICHELLE RAI MD DATE OF OPERATION: 12/14/2016 PROCEDURES: 1. Left heart catheterization. 2. Selective coronary angiography. 3. Left ventriculogram. INDICATION: Angina and coronary artery disease. PROCEDURE IN DETAIL: After informed consent was obtained and after detailed explanation of risks, benefits as well as alternative therapies, the patient elected to proceed with angiogram and heart catheterization. The right radial area was prepped and draped in normal sterile fashion. The right radial artery was cannulated via modified Seldinger technique with placement of 5-Croatian sheath. All catheters exchanged through this sheath. FINDINGS: The left ventriculogram was performed in standard 30-degree MCKNIGHT view, reveals good cardiac wall motion throughout all segments. Overall ejection fraction estimated at 55%. SELECTIVE CORONARY ANGIOGRAPHY: 1. Left main showed no significant angiographic disease. 2. Left anterior descending has mild irregularities, but no flow-limiting stenosis. 3. The left circumflex shows moderate irregularities, but no flow-limiting stenosis. 4. Right coronary has moderate irregularities, but no flow-limiting stenosis. OVERALL IMPRESSION: No significant coronary artery disease is present. Chest pain is noncardiac in etiology. No further cardiac workup needs to be ascertained at this time. TRANSINT:[id number] Voice Confirmation ID: [id number] DOCUMENT ID: [id number] MICHELLE RAI MD at 1414 CC: [id number] DICTATION DATE: 12/14/16 0946 COLOR CONTROL SUPERVISOR: 12/14/16 1129 [facility] CLI 12/14/[address] [address]
== END | disposition home or self-care (01) ==
LOC: D.CATH 07:06
PROVIDERS: Internal Medicine Interventional Cardiology
DX: I25.119 Atherosclerotic heart disease of native coronary artery with unspecified angina pectoris (principal); Z01.812 Encounter for preprocedural laboratory examination

== ENCOUNTER → 2017-11-21 10:16 | Outpatient (CLI) | payer OTHER ==
[2017-07-16 09:30] VITALS: BMI 41.4
[~2017-11-21 10:16] MED LIST changes: +INVOKANA300 MG PO; +ISORDIL5 MG PO; +MYSOLINE 50 MG50 MG PO
== END | disposition home or self-care (01) ==
LOC: D.US 10:16
DX: K82.8 Other specified diseases of gallbladder (principal)

== ENCOUNTER 2017-12-30 09:29 | Outpatient (CLI) | payer OTHER ==
[~2017-12-30] VITALS: Ht 175.3 cm; Wt 127.3 kg
--- NOTE | ~2017-12-30 | OP ---
PATIENT NAME: EVER MAS MEDICAL RECORD: [id number] :59 LOCATION:D[facility] ADMISSION DATE: SURGEON: MICHELLE RAI MD DATE OF OPERATION: 12/30/2017 PROCEDURES: 1. PTCA and stent, left circumflex. 2. Left heart catheterization. 3. Selective coronary angiography. 4. Left ventriculogram. INDICATION: Angina and coronary disease. PROCEDURE PERFORMED: After informed consent was obtained with detailed description of risks and benefits as well as alternative therapies, the patient elected to proceed with angiogram and angioplasty. The right femoral area was prepped and draped in normal sterile fashion. The right femoral artery was cannulated via modified Seldinger technique with placement of 6-Greek sheath. All catheters were exchanged through the sheath. FINDINGS: Left ventriculogram performed in standard 30-degree MCKNIGHT view reveals good cardiac wall motion throughout all segments. Overall ejection fraction estimated at 55% to 60%. SELECTIVE CORONARY ANGIOGRAPHY: 1. Left main is with no significant angiographic disease. 2. Left anterior descending has moderate irregularities, but no flow-limiting stenosis. 3. Left circumflex has previously placed stents and these are widely patent; however, there is a new 75% stenosis in the mid vessel. 4. Right coronary artery has moderate irregularities, but no flow-limiting stenosis. PTCA AND STENT OF THE LEFT CIRCUMFLEX: The stent used was 2.5 x 9-mm Ino. Result was 0% residual stenosis. OVERALL IMPRESSION: Successful PTCA and stent of the left circumflex going from 75% initial stenosis to 0% residual. TRANSINT:[id number] Voice Confirmation ID: [id number] DOCUMENT ID: [id number] MICHELLE RAI MD at 1235 CC: [id number] DICTATION DATE: 12/30/17 1636 CREAMERY WORKER: 12/30/171919 [facility] CLI 12/30/17 [place] [id number] [place] [id number]
--- NOTE | ~2017-12-30 | HEMODYNAMI ---
PATIENT:VEER MAS MEDICAL RECORD: [id number] : 59 LOCATION:[facility] ADMISSION DATE: 12/30/17 Generatedon:12/30/201713:28 Patient name: EVER MAS Patient #: [id number] SSN: : 1955 Date of study: 12/30/2017 Page: Of Hemodynamic Procedure Report Patient Data Patient Demographics Procedure consent was obtained First Name: EVER Gender: Male Last Name: CHACE : 1955 [facility] Initial: LEOPOLDO Age: 62 year(s) Patient #: [id number] Race: Additional ID: [id number] Contact details Address: [address] [place] [address] State: [place] City: [place] Zip code: [address] Past Medical History History of disease Date Diagnosis Comments CAD Allergies: No known allergies Admission Admission Data Admission Date: 12/30/2017 Admission Time: 9:29 Procedure Procedure Types Cath Procedure Diagnostic Procedure LHC LHC w/Coronaries Sedation Charges Moderate Sedation up to 15 minutes PCI Procedure Coronary Stent Coronary Stent Initial Procedure Description Procedure Date Procedure Date: 12/30/2017 Procedure Start Time: 13:11 Procedure End Time: 13:28 Procedure Staff Name Function Horace Cloud MD Performing Physician Anusha Kaufman RT Monitor Norah Proctor RN Nurse Chelsea Castle RT Scrub Procedure Data Cath Procedure Fluoroscopy Diagnostic fluoroscopy Total fluoroscopy Time: 4.1 time: 4.1 min min Diagnostic fluoroscopy Total fluoroscopy dose: 913 dose: 913 mGy mGy Contrast Material Contrast Material Type Amount (ml) Isovue 300 70 Entry Location Entry Primary Successful Side Size Upsize Upsize Entry Closure Lea ccessful Closure Location (Fr) 1 (Fr) 2 (Fr) Remarks Device Remarks Radial Right 6 Fr Mechanical artery Short Compression Estimated blood loss: 10 ml Diagnostic catheters Device Type Used For End Catheter Placement DIAGNOSTIC Mulberry 110cm 5 LV Angiography Fr catheter ([id number]) DIAGNOSTIC [place] 110cm 5 Left Coronary Fr catheter ([id number]) Angiography Procedure Complications No complications Procedure Medications Medication Administration Route Dosage 0.9% NaCl I.V. 100 ml/hr Oxygen etCO2 Nasal cannula 2 l/min Lidocaine 2% added to field 20 Heparin Flush Bag added to field 2 bags (1000units/500ml NS) Radial Cocktail added to field 1 syringe (Verapomil 2mg/Nitro 400mcg/Heparin 1500units) Versed I.V. 2 mg Fentanyl I.V. 50 mcg Heparin Bolus I.V. 4000 units Versed I.V. 1 mg Fentanyl I.V. 25 mcg Hemodynamics Rest Heart Rate: 67 (bpm) Snapshots Pre Cath Intra NCS Post Cath Vital Signs Time Heart Resp SPO2 etCO2 NIBP (mmHg) Rhythm Pain Sedation Rate (ipm) (%) (mmHg) Status Level (bpm) 12:53:39 68 14 99 33.9 134/80(112) NSR 0 (11) 10(A) , No pain 12:58:22 69 13 97 35.4 124/77(90) NSR 0 (11) 10(A) , No pain 13:03:01 67 11 98 36.1 117/76(89) NSR 0 (11) 10(A) , No pain 13:07:37 67 11 97 36.9 124/74(98) NSR 0 (11) 10(A) , No pain 13:12:14 74 12 97 39.9 126/79(105) NSR 0 (11) 10(A) , No pain 13:16:40 73 11 97 36.8 111/75(88) NSR 0 (11) 10(A) , No pain 13:21:12 71 9 97 30.8 112/70(92) NSR 0 (11) 10(A) , No pain 13:25:43 71 19 95 33.1 118/81(98) NSR 0 (11) 10(A) , No pain Medications Time Medication Route Dose Verified Delivered Reason Not es Effectiveness by by 12:44:53 0.9% NaCl I.V. 100 Horace Norah used for ml/hr Ai Proctor sample driller 12:44:59 Oxygen etCO2 2 l/min Horace Rangelyla used for Nasal Ai Proctor procedure cannula RN 12:45:05 Lidocaine 2% added 20ml Horace Vu for local to vial Ai Cloud MD anesthetic field 12:45:09 Heparin Flush added 2 bags Horace Eddyrey used for Bag to Ai Cloud MD procedure (1000units/500ml field NS) 12:52:06 Radial Cocktail added 1 Horace Horace used for (Verapomil to syringe Ai Cloud MD procedure 2mg/Nitro field 400mcg/Heparin 1500units) 13:06:08 Versed I.V. 2 mg Horace Norah for sedation Ai Proctor RN 13:06:17 Fentanyl I.V. 50 mcg Horace Norah for sedation Ai Proctor RN 13:16:28 Heparin Bolus I.V. 4000 Horace Norah for octavio ified units Ai Proctor anticoagulation with Dr. ARABELLA Cloud 13:17:31 Versed I.V. 1 mg Horace Norah for sedation Ai Proctor RN 13:17:35 Fentanyl I.V. 25 mcg Horace Norah for sedation Ai Proctor RN Procedure Log Time Note 12:34:29 Time tracking: Regular hours (M-F 7:00 - 5:00) 12:34:33 Plan of Care:Hemodynamics will remain stable., Cardiac rhythm will remain stable., Comfort level will be maintained., Respiratory function will remain adequate., Patient/ family verbilizes understanding of procedure., Procedure tolerated without complication., Recovers from procedure without complications.. 12:40:01 Chelsea Castle RT(R) sent for patient. Start room use. 12:44:25 Patient received from Pre/Post Procedure Room to CCL 1 Alert and oriented. Tansferred to table in Supine position. 12:44:26 Warm blankets applied, and madhuri hugger turned on for patient comfort. 12:44:27 Correct patient and procedure confirmed by team. 12:44:28 Signed procedure consent form obtained from patient. 12:44:29 ECG and BP/O2 sat monitors applied to patient. 12:44:30 Full Disclosure recording started 12:44:53 0.9% NaCl 100 ml/hr I.V. was administered by Norah Proctor RN; used for procedure; 12:44:59 Oxygen 2 l/min etCO2 Nasal cannula was administered by Norah Proctor RN; used for procedure; 12:45:05 Lidocaine 2% 20ml vial added to field was administered by Horace Cloud MD; for local anesthetic; 12:45:09 Heparin Flush Bag (1000units/500ml NS) 2 bags added to field was administered by Horace Cloud MD; used for procedure; 12:51:59 Vital chart was started 12:52:06 Radial Cocktail (Verapomil 2mg/Nitro 400mcg/Heparin 1500units) 1 syringe added to field was administered by Horace Cloud MD; used for procedure; 12:56:21 SHEATH 6FR Slender ([id number]) opened to sterile field. 12:56:28 Use device set Radial Dx or PCI 12:56:29 ACIST Syringe (07750) opened to sterile field. 12:56:29 Medline Cath Pack ([id number]) opened to sterile field. 12:56:30 Bag Decanter (2002S) opened to sterile field. 12:56:30 DIAGNOSTIC WIRE .035 260cm J wire (895996) opened to sterile field. 12:56:31 ACIST Hand Control (81026) opened to sterile field. 12:56:32 ACIST Manifold (67710) opened to sterile field. 12:56:32 Tegaderm 4 x 4 (1626W) opened to sterile field. 12:56:33 MBrace Wrist Support ([id number]) opened to sterile field. 13:01:51 Baseline sample Acquired. 13:01:55 Zero performed for pressure channel P1 13:04:22 Baseline sample Acquired. 13:04:25 Rhythm: sinus rhythm 13:04:41 H&P Date Dictated: 12/26/2017 Within 30 days and on chart., H&P Addendum completed by physician on day of procedure. (MUST COMPLETE FOR ALL OUTPATIENTS). 13:04:42 Pre-procedure instructions explained to patient. 13:04:43 Pre-op teaching completed and patient verbalized understanding. 13:04:45 Family in patients room. 13:04:47 Patient NPO since Midnight. 13:04:54 Patient allergic to No known allergies 13:04:56 Is the patient allergic to Iodine/contrast media? No. 13:04:58 Is patient on blood thinner?Yes 13:05:00 ACC The patient was administered the following blood thiners within the last 24 hours: ACCPlavix 13:05:02 Patient diabetic? Yes. 13:05:05 Previous problem with sedation/anesthesia? No ? 13:05:06 If diabetic: On Metformin? No 13:05:06 Snore? Yes 13:05:07 Sleep apnea? No 13:05:07 Deviated septum? No 13:05:08 Opens mouth fully? Yes 13:05:09 Sticks out tongue? Yes 13:05:11 Airway obstruction? No ? 13:05:13 Dentures? Yes IN 13:05:16 Pre procedure: right dorsailis pedis pulse 2+ Normal; easily identifiable; not easily obliterated 13:05:18 Modified Chevy's test Ulnar < 7 seconds 13:05:20 Patient pain scale 0/10 ?. 13:05:24 IV patent on arrival in left hand with 0.9% NaCl at O. 13:05:30 Right Radial & Right Groin area was prepped with chlora-prep and draped in sterile fashion 13:05:31 Alarms reviewed by R. N. 13:05:32 Sharps counted by scrub and verified by R.N. 13:05:35 Final Timeout: patient, procedure, and site verified with staff and physician. All members of the team are in agreement. 13:05:37 Right Radial site verified by team. 13:05:39 Physical assessment completed. ASA score P 2 - A patient with mild systemic disease as per Horace Cloud MD. 13:05:42 Sedation plan: IV Moderate Sedation Medication:Versed, Fentanyl 13:06:08 Versed 2 mg I.V. was administered by Norah Proctor RN; for sedation; 13:06:17 Fentanyl 50 mcg I.V. was administered by Norah Proctor RN; for sedation; 13:11:14 Procedure started. 13:11:20 Local anesthetic to right radial artery with Lidocaine 2% by Horace Cloud MD.INITIAL ACCESS ONLY 13:11:29 A 6 Fr Short sheath was inserted into the Right Radial artery 13:12:17 A DIAGNOSTIC Mulberry 110cm 5 Fr catheter ([id number]) was advanced over the wire and used for LV Angiography. 13:12:56 LV gram done using MCKNIGHT 13:12:56 LV hemodynamics recorded. 13:13:03 EF : 55 % 13:13:06 Injector settings: Ml/sec: 5, Volume: 15, 13:13:34 A DIAGNOSTIC [place] 110cm 5 Fr catheter (857517) was advanced over the wire and used for Left Coronary Angiography. removed unable to cannulate 13:14:01 GUIDE 6FR XBLAD 3.5 catheter ([id number]) opened to sterile field. 13:14:12 6 Fr XBLAD 3.5 guide catheter was inserted over the wire 13:14:48 LCA angiography performed. 13:15:21 Use device set AI PCI 13:15:24 CHOICE PT Extra Support 182cm wire ([id number]) opened to sterile field. 13:15:29 INFLATOR Merit BasixCompak (IV0930) opened to sterile field. 13:16:28 Heparin Bolus 4000 units I.V. was administered by Norah Proctor RN; for anticoagulation; verified with Dr. Cloud 13:16:53 CHOICE PT ES wire advanced. 13:17:21 GUIDE 6FR HS I catheter (LA6HSI) opened to sterile field. 13:17:31 Versed 1 mg I.V. was administered by Norah Proctor RN; for sedation; 13:17:35 Fentanyl 25 mcg I.V. was administered by Norah Proctor RN; for sedation; 13:17:47 Inflate balloon Inflation number: 1 A EUPHORA 2.5 x 12 Balloon ([id number]) was prepped and advanced across the Mid CX, then inflated to 15 GUERO for 0:06 (min:sec). 13:18:10 Balloon removed over the wire. 13:20:18 Place stent Inflation Number: 2 A MARLEE RX 2.5 x 08 stent ([id number]) was prepped and advanced across the Mid CX. The stent was deployed at 17 GUERO for 0:06 (min:sec). 13:20:42 Stent catheter was removed intact over wire. 13:20:43 Wire removed. 13:20:52 Guide catheter removed. 13:21:12 GUIDE 6FR AR 1.0 catheter ([id number]) opened to sterile field. 13:21:55 6 Fr AR 1.0 guide catheter was inserted over the wire 13:22:00 RCA angiography performed. 13:22:51 Guide catheter removed. 13:23:21 Sheath removed intact; hemostasis achieved with Mechanical Compression to the Right Radial artery. 13:23:23 Procedure ended.(Physican Out) 13:23:48 Fluoroscopy time 04.10 minutes. 13:23:52 Fluoroscopy dose: 913 mGy 13:23:52 Flurop Dose total: 913 13:23:59 Contrast amount:Isovue 300 70ml. 13:24:01 Sharps counted by scrub and verified by R.N. 13:24:04 TR band inflated with 12cc of air. 13:24:05 Insertion/operative site no bleeding no hematoma. 13:24:14 Post right radial artery:stable, clean and dry 13:24:16 Post Procedure Pulses reassessed and unchanged 13:24:20 Post-procedure physical assessment completed. ASA score P 2 - A patient with mild systemic disease as per Horace Cloud MD. 13:24:22 Post procedure rhythm: unchanged. 13:24:27 Estimated blood loss: 10 ml 13:24:35 Post procedure instruction explained to patient.Patient verbalizes understanding. 13:24:36 Patient needs reinforcement of post procedure teaching. 13:25:02 Procedure type changed to Cath procedure, Diagnostic procedure, LHC, LHC w/Coronaries, Sedation Charges, Moderate Sedation up to 15 minutes, PCI procedure, Coronary Stent, Coronary Stent Initial 13:25:12 Procedure Complication : No complications 13:25:15 See physician's report for complete and final results. 13:25:31 TR BAND Large ([id number]) opened to sterile field. 13:26:03 Procedure and supply charges have been captured, reviewed, submitted and are correct. 13:27:47 Vital chart was stopped 13:27:49 Report given to Pre/Post Procedure Room. 13:27:52 Patient transfered to Pre/Post Procedure Room with Stretcher. 13:27:59 Procedure ended. 13:27:59 Full Disclosure recording stopped 13:28:06 End room use (Document Last) Intervention Summary Intervention Notes Time ActionType Lesion and Equipment Used Action# Pressure Duration Attributes 13:17:47 Inflate Mid CX EUPHORA 2.5 x 1 15 00:06 balloon 12 Balloon ([id number]) 13:20:18 Place stent Mid CX MARLEE RX 2.5 x 2 17 00:06 08 stent ([id number]) Device Usage Item Name Manufacture Quantity Catalog Number Hospital Part Current M inimal Lot# / Charge Number Stock Stock Serial# Code SHEATH 6FR Terumo 1 [id number] 016737 005908 094913 4 0 Slender ([id number]) ACIST Syringe Acist 1 90373 547100 659533 575715 2 0 (26415) Medical Systems Inc Medline Cath Medline 1 [id number] 307310 98417 161514 5 Pack ([id number]) Bag Decanter Microtek 1 2001S 639333 09275 811616 5 (2001S) Medical Inc. DIAGNOSTIC [place] 1 571302 750507 833913 046701 3 0 WIRE .035 260cm J wire (348216) ACIST Hand Acist 1 96858 519628 047910 567754 5 Control Medical (17530) Systems Inc ACIST Manifold Acist 1 01663 481529 952241 681004 5 (14691) Medical Systems Inc Tegaderm 4 x 4 3M 1 1626W 868967 789176 828507 5 (1626W) MBrace Wrist Advanced 1 140-0250-00 770347 90679 201593 5 Support Vascular ([id number]) Dynamics DIAGNOSTIC Terumo 1 405013 625404 075573 316248 5 Mulberry 110cm 5 Fr catheter (760115) GUIDE 6FR Cardinal 1 [id number] 589873 545802 363123 1 0 XBLAD 3.5 Health catheter ([id number]) CHOICE PT [place] 1 [id number] 083184 270958 584174 5 Extra Support Scientific 182cm wire ([id number]) INFLATOR Merit Merit 1 TJ4180 813028 848346 224591 1 5 HiConversion.ru ([id number]) GUIDE 6FR HS I Medtronic 1 LA6HSI 236377 36010 657135 1 catheter (LA6HSI) EUPHORA 2.5 x Medtronic 1 [id number] 249119 727781 962590 5 [id number] 12 Balloon ([id number]) MARLEE RX 2.5 x Medtronic 1 [id number] 466573 3244564 446924 5 [id number] 08 stent ([id number]) GUIDE 6FR AR Medtronic 1 [id number] 052339 14315 717554 1 1.0 catheter ([id number]) TR BAND Large Terumo 1 [id number] 880958 649386 492856 4 0 ([id number]) Signature Audit [place] Stage Time Signature Unsigned Intra-Procedure 12/30/2017 Anusha 1:28:46 PM Counts RT(R) Signatures Monitor : Anusha Signature : Counts RT Date : Time : [address] [address]
[2017-12-30] MEDS ORDERED: CARAFATE1 G PO (09:46)
[2017-12-30] MEDS ORDERED: COZAAR100 MG PO (09:47)
[2017-12-30] MEDS ORDERED: HYDROCHLOROTH12.5 M1 PO (09:48)
[2017-12-30 09:53] VITALS: BP 137/78; Ht 175.3 cm; Wt 127.3 kg
[2017-12-30 10:10] LABS: BASOPHILS 0.1 % (0-2); EOSINOPHILS 1.5 % (0-7); HEMATOCRIT 45.4 % (42.0-54.0); HEMOGLOBIN 15.8 g/dL (13.5-17.5); IMMATURE GRANULOCYTES 0.3 % (0-5); MCH 30.1 pg (26.0-34.0); MCHC 34.8 g/dL (31.0-37.0); MCV 86.5 fL (80.0-100.0); MONOCYTES 8.6 % (2-11); NEUTROPHILS 80.5 % (40-80); PLATELET COUNT 185 10x3/uL (130-400); RBC 5.25 10x6/uL (4.20-6.10); RDW 12.8 % (11.5-14.5); WBC 7.2 10x3/uL (4.8-10.8)
[2017-12-30 10:16] LABS: ANION GAP 13.1 mmol/L (8-16); CALCIUM 9.2 mg/dL (8.5-10.1); CREATININE - SERUM 1.1 mg/dL (0.6-1.3); POTASSIUM - SERUM 4.1 mmol/L (3.5-5.1)
[2017-12-30] MEDS ORDERED: PLAVIX75 MG PO (13:37)
== END 2017-12-30 17:35 | disposition home or self-care (01) ==
LOC: D.CATH 09:29
PROVIDERS: Internal Medicine Interventional Cardiology
DX: I25.110 Atherosclerotic heart disease of native coronary artery with unstable angina pectoris (principal)

== ENCOUNTER 2018-01-30 13:00 | Outpatient (CLI) | payer OTHER ==
[~2018-01-30] VITALS: Ht 175.3 cm; Wt 128.6 kg
--- NOTE | ~2018-01-30 | OP ---
PATIENT NAME: EVER MAS MEDICAL RECORD: [id number] :59 LOCATION:D.CAT ADMISSION DATE: SURGEON: MICHELLE RAI MD DATE OF OPERATION: 01/30/2018 PROCEDURES: 1. Left heart catheterization. 2. Selective coronary angiography. 3. Left ventriculogram. INDICATION: Chest pain compatible with angina, recent PTCA and stent in left circumflex with Plavix and aspirin noncompliance. PROCEDURE IN DETAIL: After informed consent was obtained with detailed description of risks and benefits as well as alternative therapies, the patient elected to proceed with angiogram and heart catheterization. The right radial area was prepped and draped in normal sterile fashion. Right radial artery was cannulated via modified Seldinger technique with placement of 6-Swedish sheath. All catheters were exchanged through this sheath. FINDINGS: Left ventriculogram performed in standard 30-degree MCKNIGHT view reveals good cardiac wall motion throughout all segments. Overall ejection fraction estimated at 60%. SELECTIVE CORONARY ANGIOGRAPHY: 1. Left main has no significant angiographic disease. 2. Left anterior descending has previously placed stent that is widely patent with no significant restenosis. No disease else hilton at the LAD or its branches. 3. Left circumflex has a previously placed stent. This is widely patent with no significant restenosis. No disease else hilton throughout the circumflex or its branches. 4. Right coronary has moderate irregularities, but no flow-limiting stenosis. OVERALL IMPRESSION: Wide patency of the previously placed stents. Continue aspirin and Plavix for at least 5-6 months from now. Continue medical management of angina and coronary artery disease. TRANSINT:[id number] Voice Confirmation ID: [id number] DOCUMENT ID: [id number] MICHELLE RAI MD at 1718 CC: [id number] DICTATION DATE: 01/30/18 1506 BENDER MACHINE OPERATOR: 01/30/18 1646 REG [facility] [address] [place] [address]
--- NOTE | ~2018-01-30 | HEMODYNAMI ---
PATIENT:EVER MAS MEDICAL RECORD: [id number] : 59 LOCATION:[facility] ADMISSION DATE: 01/30/18 Generatedon:01/30/201815:05 Patient name: EVER MAS Patient #: [id number] SSN: : 1955 Date of study: 01/30/2018 Page: Of Hemodynamic Procedure Report Patient Data Patient Demographics Procedure consent was obtained First Name: EVER Gender: Male Last Name: CHACE : 1955 [facility] Initial: LEOPOLDO Age: 62 year(s) Patient #: [id number] Race: Additional ID: [id number] Contact details Address: [address] [place] [address] State: [place] City: [place] Zip code: [address] Past Medical History History of disease Date Diagnosis Comments CAD Allergies: No known allergies Admission Admission Data Admission Date: 01/30/2018 Admission Time: 13:00 Arrival Date: 01/30/2018 Arrival Time: 10:00 Admit Source: Other Insurance Payor: Private health insurance Procedure Procedure Types Cath Procedure Diagnostic Procedure LHC LHC w/Coronaries Procedure Description Procedure Date Procedure Date: 01/30/2018 Procedure Start Time: 14:53 Procedure End Time: 15:02 Procedure Staff Name Function Horace Cloud MD Performing Physician Priyanka Turner RT Monitor Codie Mon RT Scrub Felix Meadows RN Nurse Mitchel Alvarez RN Nurse Procedure Data Cath Procedure Fluoroscopy Diagnostic fluoroscopy Total fluoroscopy Time: 2 time: 2 min min Diagnostic fluoroscopy Total fluoroscopy dose: 746 dose: 746 mGy mGy Contrast Material Contrast Material Type Amount (ml) Isovue 300 71 Entry Location Entry Primary Successful Side Size Upsize Upsize Entry Closure Lea ccessful Closure Location (Fr) 1 (Fr) 2 (Fr) Remarks Device Remarks Radial Right 6 Fr Mechanical artery Short Compression Estimated blood loss: 10 ml Diagnostic catheters Device Type Used For End Catheter Placement DIAGNOSTIC Pigtail 5Fr Procedure catheter ([id number]) DIAGNOSTIC AR2 MOD 5 Fr Procedure catheter ([id number]) Procedure Complications No complications Procedure Medications Medication Administration Route Dosage Oxygen etCO2 Nasal cannula 2 l/min Heparin Flush Bag added to field 2 bags (1000units/500ml NS) 0.9% NaCl I.V. 100 ml/hr Radial Cocktail added to field 1 syringe (Verapomil 2mg/Nitro 400mcg/Heparin 1500units) Plavix P.O. 600 mg Fentanyl I.V. 50 mcg Versed I.V. 1 mg Fentanyl I.V. 50 mcg Versed I.V. 1 mg Fentanyl I.V. 50 mcg Fentanyl I.V. 50 mcg Hemodynamics Rest Heart Rate: 67 (bpm) Pressure Samples Time Site Value (mmHg) Purpose Heart Use Rate(bpm) 14:59 LV 127/11,16 Snapshot 87 14:59 AO 124/93(108) Pullback 86 14:59 LV 100/11,6 Pullback 86 Gradients Valve Time Site 1 Site 2 Mean SEP/DFP Peak To Heart Use (mmHg) (sec/min) Peak Rate (mmHg) (bpm) Aortic 14:59 LV AO 0 86 100/11,6 124/93(108) Calculations Valve P-P Mean Valve Index Valve Source Name Gradient Area Flow (cm2) Aortic 0 0 Snapshots Pre Cath Intra NCS Post Cath Vital Signs Time Heart Resp SPO2 etCO2 NIBP (mmHg) Rhythm Pain Sedation Rate (ipm) (%) (mmHg) Status Level (bpm) 14:29:18 69 18 98 0 159/94(112) NSR 0 (11) 10(A) , No pain 14:33:35 74 16 98 38.6 166/91(120) NSR 0 (11) 10(A) , No pain 14:37:53 68 16 96 41.6 144/98(116) NSR 0 (11) 10(A) , No pain 14:42:05 66 17 95 39.4 137/87(113) NSR 0 (11) 10(A) , No pain 14:46:15 66 16 94 42.3 151/84(123) NSR 0 (11) 9(A) , No pain 14:50:26 71 16 94 45.3 160/93(129) NSR 0 (11) 9(A) , No pain 14:54:40 70 17 95 48.3 150/114(143) NSR 0 (11) 9(A) , No pain 14:58:56 92 16 96 46.9 127/102(124) NSR 0 (11) 9(A) , No pain 15:02:58 82 16 96 49.8 147/109(128) NSR 0 (11) 9(A) , No pain Medications Time Medication Route Dose Verified Delivered Reason Notes Effectiveness by by 14:30:21 Oxygen etCO2 2 l/min Horace Washington Per Nasal Ai Meadows RN physician cannula 14:30:29 Heparin Flush added 2 bags Horace Marquezy Per Bag to Ai Meadows RN physician (1000units/500ml field NS) 14:30:39 0.9% NaCl I.V. 100 Horacerey Washington Per ml/hr Ai Meadows RN physician 14:30:48 Radial Cocktail added 1 Horace Washington used for (Verapomil to syringe Ai Meadows RN procedure 2mg/Nitro field 400mcg/Heparin 1500units) 14:36:30 Plavix P.O. 600 mg Horace Washington for Ai Meadows RN antiplatelet therapy 14:37:19 Fentanyl I.V. 50 mcg Horace Washington for sedation Ai Meadows RN 14:37:25 Versed I.V. 1 mg Horace Washington for sedation Ai Meadows RN 14:42:04 Fentanyl I.V. 50 mcg Horace Washington for sedation Ai Meadows RN 14:42:08 Versed I.V. 1 mg Horace Washington for sedation Ai Meadows RN 14:47:38 Fentanyl I.V. 50 mcg Hoarce Washington for sedation Ai Meadows RN 14:52:50 Fentanyl I.V. 50 mcg Horace Washington for sedation Ai Meadows RN Procedure Log Time Note 14:12:21 Felix Meadows RN sent for patient. Start room use. 14:12:22 Time tracking: Regular hours (M-F 7:00 - 5:00) 14:12:26 Plan of Care:Hemodynamics will remain stable., Cardiac rhythm will remain stable., Comfort level will be maintained., Respiratory function will remain adequate., Patient/ family verbilizes understanding of procedure., Procedure tolerated without complication., Recovers from procedure without complications.. 14:13:47 Admit Source: Other 14:14:01 Insurance Payor : Private health insurance 14:14:04 Arrival Date: 01/30/2018 10:00:00 AM 14:28:08 Patient received from Pre/Post Procedure Room to CCL 2 Alert and oriented. Tansferred to table in Supine position. 14:28:09 Warm blankets applied, and madhuri hugger turned on for patient comfort. 14:28:10 Correct patient and procedure confirmed by team. 14:28:11 Signed procedure consent form obtained from patient. 14:28:12 ECG and BP/O2 sat monitors applied to patient. 14:28:12 Vital chart was started 14:28:13 Baseline sample Acquired. 14:28:19 Rhythm: sinus rhythm 14:28:21 Full Disclosure recording started 14:28:24 H&P Date Dictated: 01/30/2018 Within 30 days and on chart., H&P Addendum completed by physician on day of procedure. (MUST COMPLETE FOR ALL OUTPATIENTS). 14:28:25 Pre-procedure instructions explained to patient. 14:28:26 Pre-op teaching completed and patient verbalized understanding. 14:28:27 Family in waiting room. 14:28:28 Patient NPO since Midnight. 14:28:30 Is the patient allergic to Iodine/contrast media? No. 14:28:31 Was the patient premedicated? No 14:28:32 Is patient on blood thinner?Yes 14:28:36 ACC The patient was administered the following blood thiners within the last 24 hours: ACCPlavix 14:28:41 Patient diabetic? Yes. 14:28:42 If diabetic: On Metformin? No 14:28:46 Previous problem with sedation/anesthesia? No ? 14:28:48 Snore? Yes 14:28:49 Sleep apnea? No 14:28:59 Deviated septum? No 14:28:59 Opens mouth fully? Yes 14:29:00 Sticks out tongue? Yes 14:29:15 Airway obstruction? No ? 14:29:22 Dentures? Yes in tight 14:29:46 Patient pain scale 0/10 ?. 14:29:54 IV patent on arrival in left antecubital with 0.9% NaCl at [facility]. 14:30:21 Oxygen 2 l/min etCO2 Nasal cannula was administered by Felix Meadows RN; Per physician; 14:30:29 Heparin Flush Bag (1000units/500ml NS) 2 bags added to field was administered by Felix Meadows RN; Per physician; 14:30:39 0.9% NaCl 100 ml/hr I.V. was administered by Felix Meadows RN; Per physician; 14:30:48 Radial Cocktail (Verapomil 2mg/Nitro 400mcg/Heparin 1500units) 1 syringe added to field was administered by Felxi Meadows RN; used for procedure; 14:36:30 Plavix 600 mg P.O. was administered by Felix Meadows RN; for antiplatelet therapy; 14:36:36 Physician arrived 14:36:36 --------ALL STOP TIME OUT------ 14:36:37 Final Timeout: patient, procedure, and site verified with staff and physician. All members of the team are in agreement. 14:36:39 Right Radial & Right Groin site verified by team. 14:36:46 Physical assessment completed. ASA score P 2 - A patient with mild systemic disease as per Horace Cloud MD. 14:36:50 Sedation plan: IV Moderate Sedation Medication:Versed, Fentanyl 14:37:19 Fentanyl 50 mcg I.V. was administered by Felix Meadows RN; for sedation; 14:37:25 Versed 1 mg I.V. was administered by Felix Meadows RN; for sedation; 14:37:30 Lab results completed and on chart. 14:37:36 Right Radial & Right Groin area was prepped with chlora-prep and draped in sterile fashion 14:37:37 Alarms reviewed by R. N. 14:37:37 Sharps counted by scrub and verified by R.N. 14:37:54 Use device set Radial Dx or PCI 14:37:55 ACIST Syringe (22783) opened to sterile field. 14:37:55 Medline Cath Pack ([id number]) opened to sterile field. 14:37:56 Bag Decanter (2002) opened to sterile field. 14:37:56 DIAGNOSTIC WIRE .035 260cm J wire (483192) opened to sterile field. 14:37:56 ACIST Hand Control (49706) opened to sterile field. 14:37:57 ACIST Manifold (94557) opened to sterile field. 14:37:57 Tegaderm 4 x 4 (1626W) opened to sterile field. 14:37:58 MBrace Wrist Support ([id number]) opened to sterile field. 14:37:59 NEEDLE Cook 21G 4cm Radial (Q70483) opened to sterile field. 14:38:01 TR BAND Large ([id number]) opened to sterile field. 14:38:03 SHEATH 6FR Slender (801060) opened to sterile field. 14:40:48 Zero performed for pressure channel P1 14:42:04 Fentanyl 50 mcg I.V. was administered by Felix Meadows RN; for sedation; 14:42:08 Versed 1 mg I.V. was administered by Felix Meadows RN; for sedation; 14:47:38 Fentanyl 50 mcg I.V. was administered by Felix Meadows RN; for sedation; 14:52:07 Procedure started. 14:52:24 Zero performed for pressure channel P1 14:52:50 Fentanyl 50 mcg I.V. was administered by Felix Meadows RN; for sedation; 14:53:33 Local anesthetic to right radial artery with Lidocaine 2% by Horace Cloud MD.INITIAL ACCESS ONLY 14:53:44 A 6 Fr Short sheath was inserted into the Right Radial artery 14:53:49 J wire advanced. 14:55:30 A DIAGNOSTIC Pigtail 5Fr catheter ([id number]) was advanced over the wire and used for Procedure. 14:56:25 Catheter removed. 14:56:52 GUIDE 6FR XBLAD 3.5 catheter ([id number]) opened to sterile field. 14:58:47 LCA angiography performed. 14:58:50 Catheter removed. 14:58:58 A DIAGNOSTIC AR2 MOD 5 Fr catheter ([id number]) was advanced over the wire and used for Procedure. 14:59:26 LV angiography performed. 15:00:03 RCA angiography performed. 15:00:08 Catheter removed. 15:01:21 Sheath removed intact; hemostasis achieved with Mechanical Compression to the Right Radial artery. 15:01:24 Procedure ended.(Physican Out) 15:01:34 Fluoroscopy time 02.00 minutes. 15:01:39 Flurop Dose total: 746 15::39 Fluoroscopy dose: 746 mGy 15::47 Contrast amount:Isovue 300 71ml. 15:01:48 Sharps counted by scrub and verified by R.N. 15:01:51 TR band inflated with 14cc of air. 15:01:52 Insertion/operative site no bleeding no hematoma. 15:01:54 Post Procedure Pulses reassessed and unchanged 15:01:57 Post-procedure physical assessment completed. ASA score P 2 - A patient with mild systemic disease as per Horace Cloud MD. 15:02:00 Post procedure rhythm: unchanged. 15:02:02 Estimated blood loss: 10 ml 15:02:04 Post procedure instruction explained to patient.Patient verbalizes understanding. 15:02:10 Procedure and supply charges have been captured, reviewed, submitted and are correct. 15:02:33 Procedure Complication : No complications 15:02:35 Vital chart was stopped 15:02:35 See physician's report for complete and final results. 15:02:37 Report given to Pre/Post Procedure Room. 15:02:40 Patient transfered to Pre/Post Procedure Room with Stretcher. 15:02:42 Procedure ended. 15:02:42 Full Disclosure recording stopped 15:02:45 End room use (Document Last) Device Usage Item Name Manufacture Quantity Catalog Hospital Part Current Minimal Lot# / Number Charge Number Stock Stock Serial# Code ACIST Acist 1 72737 277400 166986 454745 20 Syringe Medical (74972) Systems Inc Medline Medline 1 [id number] 032407 94902 394268 5 Cath Pack ([id number]) Bag Microtek 1 2001S 443492 60990 610216 5 Decanter Medical Inc. () DIAGNOSTIC [facility] [place] 1 604988 698781 928034 630650 30 WIRE .035 260cm J wire (171349) ACIST Hand Acist 1 66240 909324 721615 595935 5 Control Medical (46778) Systems Inc ACIST Acist 1 23669 848546 599567 745668 5 Manifold Medical (62147) Systems Inc Tegaderm 4 3M 1 1626W 013176 567394 411082 5 x 4 (1626W) MBrace Advanced 1 140-0250-00 968324 77920 884596 5 Wrist Vascular Support Dynamics ([id number]) NEEDLE Cook Cook Medical 1 C36328 799796 816504 180307 5 21G 4cm Radial (Y21478) TR BAND Terumo 1 HZJ17-TEO 913263 421664 506590 40 Large (SSD47VLZ) SHEATH 6FR Terumo 1 [id number] 199349 198627 184045 40 Slender (80-1060) DIAGNOSTIC Cardinal 1 [id number] 318219 243740 606842 5 Pigtail 5Fr Health catheter (575871N) GUIDE 6FR Cardinal 1 [id number] 774403 940445 854069 10 XBLAD 3.5 Health catheter (36800374) DIAGNOSTIC Cardinal 1 091766N 792151 916220 368032 20 AR2 MOD 5 Health Fr catheter (423021V) Signature Audit [place] Stage Time Signature Unsigned Intra-Procedure 01/30/2018 Priyanka Turner 3:05:46 PM RT(R) Signatures Monitor : Priyanka Turner Signature : RT Date : Time : [place] [id number] [place] [address]
[~2018-01-30 13:00] MED LIST changes: +CARAFATE1 G PO; +COZAAR100 MG PO; +HYDROCHLOROTH12.5 M1 PO
[2018-01-30 13:21] VITALS: BP 154/83; Ht 175.3 cm; Wt 128.6 kg
[2018-01-30 13:45] LABS: CALCIUM 9.6 mg/dL (8.5-10.1); CARBON DIOXIDE 30.2 mmol/L (21.0-32.0); CREATININE - SERUM 1.1 mg/dL (0.6-1.3); POTASSIUM - SERUM 4.2 mmol/L (3.5-5.1)
[2018-01-30 14:19] LABS: BASOPHILS 0.3 % (0-2); EOSINOPHILS 2.5 % (0-7); HEMATOCRIT 46.2 % (42.0-54.0); HEMOGLOBIN 15.9 g/dL (13.5-17.5); IMMATURE GRANULOCYTES 0.3 % (0-5); LYMPHOCYTES 24.3 % (15-50); MCH 29.6 pg (26.0-34.0); MCHC 34.4 g/dL (31.0-37.0); MEAN PLATELET VOLUME 9.1 fL (7.4-10.4); MONOCYTES 8.1 % (2-11); NEUTROPHILS 64.5 % (40-80); RBC 5.37 10x6/uL (4.20-6.10); RDW 12.7 % (11.5-14.5); WBC 6.9 10x3/uL (4.8-10.8)
[2018-01-30 14:20] LABS: PLATELET COUNT 243 10x3/uL (130-400)
[2018-01-30] MEDS ORDERED: ISOSORBIDE MONO30 M1 PO (15:20)
[2018-01-30] MEDS ORDERED: PLAVIX75 MG PO (15:20)
== END 2018-01-30 17:05 | disposition home or self-care (01) ==
LOC: D.CATH 13:00
PROVIDERS: Internal Medicine Interventional Cardiology
DX: I25.119 Atherosclerotic heart disease of native coronary artery with unspecified angina pectoris (principal); Z95.5 Presence of coronary angioplasty implant and graft; Z91.14 Patient's other noncompliance with medication regimen; Z01.812 Encounter for preprocedural laboratory examination

== ENCOUNTER → 2018-03-11 07:41 | Outpatient (CLI) | payer OTHER ==
[2018-01-30 13:21] VITALS: BMI 41.9
[~2018-03-11 07:41] MED LIST changes: +ISOSORBIDE MONO30 M1 PO
== END | disposition home or self-care (01) ==
LOC: D.RAD 03-06 08:00
DX: R10.13 Epigastric pain (principal)

== ENCOUNTER → 2018-03-19 08:07 | Outpatient (CLI) | payer OTHER ==
[2018-01-30 13:21] VITALS: BMI 41.9
== END | disposition home or self-care (01) ==
LOC: D.NM 08:00
DX: R10.13 Epigastric pain (principal)

== ENCOUNTER 2018-08-12 11:15 | Observation (INO) | payer OTHER ==
[~2018-08-12] VITALS: Ht 175.3 cm; Wt 128.7 kg
[2018-08-12] VITALS (9 sets, daily range): BP systolic 96–143; BP diastolic 65–78; Ht 175.3 cm; Wt 128.7 kg
--- NOTE | ~2018-08-12 | DS ---
PATIENT:EVER MAS :59 MEDICAL RECORD: [id number] DISCHARGE SUMMARY ADMISSION DATE: 08/12/18 DISCHARGE DATE: 08/13/18 DISCHARGE DIAGNOSES: 1. Angina. 2. Coronary artery disease. 3. Hypertension. 4. Hyperlipidemia. HISTORY AND HOSPITAL COURSE: Mr. Mas presents with anginal symptomatology; however, cardiac catheterization reveals no significant new disease of significance, wide patency of his previously placed stents. He does have a history of GERD. This could possibly have been a GERD exacerbation. He was discharged home with no change in his medications as his heart rate and blood pressure were optimal. Follow up with [facility] in 1 month. TRANSINT:[id number] Voice Confirmation ID: [id number] DOCUMENT ID: [id number] MICHELLE RAI MD CC: [id number] DICTATION DATE: 08/13/18 1203 PRINTED CIRCUIT BOARDS SOLDER LEVELER: 08/14/18 0753 DIS IN 08/13/[address] [facility] [address] [place] [id number]
--- NOTE | ~2018-08-12 | OP ---
PATIENT NAME: EVER MAS MEDICAL RECORD: [id number] :59 [facility]ATION[facility] ADMISSION DATE:08/12/18 SURGEON: MICHELLE RAI MD DATE OF OPERATION: 08/13/2018 PROCEDURES: 1. Left heart catheterization. 2. Selective coronary angiography. 3. Left ventriculogram. 4. IFR RCA. 5. IFR LAD. PROCEDURE IN DETAIL: After informed consent was obtained and after a detailed description of risks, benefits as well as alternative therapies, the patient elected to proceed with angiogram and heart catheterization. The right radial area was prepped and draped in normal sterile fashion. Right radial artery was cannulated via modified Seldinger technique with placement of 5-Portuguese sheath. All catheters exchanged through this sheath. FINDINGS: The left ventriculogram performed in standard 30-degree MCKNIGHT view, reveals good cardiac wall motion throughout all segments. Overall ejection fraction estimated 60%. SELECTIVE CORONARY ANGIOGRAPHY: 1. Left main is with no significant angiographic disease. 2. Left anterior descending has a previously placed stent that is widely patent with no significant restenosis. There is questionable stenosis in the distal vessel; however, IFR was normal. 3. Left circumflex has moderate irregularities, but no flow-limiting stenosis. 4. Right coronary artery has moderate irregularities throughout the mid vessel; however, IFR was normal. OVERALL IMPRESSION: Wide patency of the previously placed stents. No significant disease elsewise. Continue medical management of the coronary artery disease and cardiac risk factors. TRANSINT:[id number] Voice Confirmation ID: [id number] DOCUMENT ID: [id number] MICHELLE RAI MD CC: [id number] DICTATION DATE: 08/13/18 1205 MEDICAL CERTIFICATION SPECIALIST: 08/13/18 1300 ADM IN [facility] [address] [place] [address]
--- NOTE | ~2018-08-12 | PN ---
PATIENT:EVER MAS MEDICAL RECORD: [id number] LOCATION:[address] ADMISSION DATE: 08/12/18 PROGRESS NOTE DATE OF SERVICE: 08/13/2018 DIAGNOSES: 1. Continued anginal chest discomfort. 2. Coronary artery disease. 3. Previous percutaneous transluminal coronary angioplasty stent. 4. Hypertension. 5. Hyperlipidemia. Mr. Mas was admitted with unstable anginal symptomatology yesterday, optimal medical management was undertaken with ARB, beta robin, nitrates, and calcium channel blockade as well as doses of morphine. He has continued to have episodes of chest discomfort radiating to his jaw. This is just like his previous angina. He has continued to have that pain today and has it now while he is being interviewed for the daily visit. Hence, we will proceed with coronary angiography. His heart rate and blood pressures are optimal at this time and continued pain. Further care depends upon findings of the angiography. TRANSINT:[id number] Voice Confirmation ID: [id number] DOCUMENT ID: [id number] MICHELLE RAI MD CC: [id number] DICTATION DATE: 08/13/18919 BRAKE PRESS OPERATOR: 08/13/18 1054 ADM IN [facility] [address] [place] [id number]
--- NOTE | ~2018-08-12 | HEMODYNAMI ---
PATIENT:EVER MAS MEDICAL RECORD: [id number] : 59 LOCATION:[facility] D.2118 ADMISSION DATE: 08/12/18 Generatedon:08/13/201812:03 Patient name: EVER MAS Patient #: [id number] SSN: : 1955 Date of study: 08/13/2018 Page: Of Hemodynamic Procedure Report Patient Data Patient Demographics Procedure consent was obtained First Name: EVER Gender: Male Last Name: CHACE : 1955 [facility] Initial: LEOPOLDO Age: 63 year(s) Patient #: [id number] Race: Additional ID: [id number] Contact details Address: [address] [place] [address] State: [place] City: [place] Zip code: [address] Past Medical History History of disease Date Diagnosis Comments CAD Allergies: No known allergies Admission Admission Data Admission Date: 08/12/2018 Admission Time: 13:21 Room #: 2118 Procedure Procedure Types Cath Procedure Diagnostic Procedure LHC LHC w/Coronaries FFR/IVUS FFR Initial FFR Additional Procedure Description Procedure Date Procedure Date: 08/13/2018 Procedure Start Time: 11:47 Procedure End Time: 12:02 Procedure Staff Name Function Horace Cloud MD Performing Physician Zak Conn RT Monitor Chelsea Castle RT Scrub Felix Meadows RN Nurse Jhoan Brown RT General Ledger Bookkeeper Procedure Data Cath Procedure Fluoroscopy Diagnostic fluoroscopy Total fluoroscopy Time: 3.3 time: 3.3 min min Diagnostic fluoroscopy Total fluoroscopy dose: 978 dose: 978 mGy mGy Contrast Material Contrast Material Type Amount (ml) Isovue 300 68 Entry Location Entry Primary Successful Side Size Upsize Upsize Entry Closure Lea ccessful Closure Location (Fr) 1 (Fr) 2 (Fr) Remarks Device Remarks Radial Right 6 Fr Mechanical artery Short Compression Estimated blood loss: 5 ml Diagnostic catheters Device Type Used For End Catheter Placement DIAGNOSTIC Pigtail 5Fr Procedure catheter ([id number]) Procedure Complications No complications Procedure Medications Medication Administration Route Dosage Oxygen etCO2 Nasal cannula 2 l/min Heparin Flush Bag added to field 2 bags (1000units/500ml NS) 0.9% NaCl I.V. 100 ml/hr Lidocaine 2% added to field 20 Radial Cocktail added to field 1 syringe (Verapamil 2mg/Nitro 400mcg/Heparin 1500units) Fentanyl I.V. 50 mcg Versed I.V. 1 mg Fentanyl I.V. 50 mcg Versed I.V. 1 mg Radial Cocktail I.A. 1 syringe (Verapamil 2mg/Nitro 400mcg/Heparin 1500units) Fentanyl I.V. 50 mcg Fentanyl I.V. 50 mcg Hemodynamics Rest Heart Rate: 72 (bpm) Snapshots Pre Cath Intra NCS Post Cath Vital Signs Time Heart Resp SPO2 etCO2 NIBP (mmHg) Rhythm Pain Sedation Rate (ipm) (%) (mmHg) Status Level (bpm) 11:42:09 70 17 98 0 159/85(115) NSR 0 (11) 10(A) , No pain 11:46:18 68 16 97 32.2 142/89(111) NSR 0 (11) 10(A) , No pain 11:50:41 77 16 96 43.3 131/62(97) NSR 0 (11) 10(A) , No pain 11:54:51 74 17 96 45.6 144/93(124) NSR 0 (11) 9(A) , No pain 11:58:58 71 17 94 51.6 136/102(117) NSR 0 (11) 9(A) , No pain 12:01:12 70 16 95 48.6 153/100(127) NSR 0 (11) 9(A) , No pain Medications Time Medication Route Dose Verified Delivered Reason Notes Effectiveness by by 11:45:10 Oxygen etCO2 2 l/min Horace Washington Per Nasal Ai Meadows RN physician cannula 11:45:17 Heparin Flush added 2 bags Horace Washington used for Bag to Ai Meadows RN procedure (1000units/500ml field NS) 11:45:25 0.9% NaCl I.V. 100 Horace Washington Per ml/hr Ai Meadows RN physician 11:45:33 Lidocaine 2% added 20ml Horace Washington for local to vial Ai Meadows RN anesthetic field 11:45:40 Radial Cocktail added 1 Horace Washington used for (Verapamil to syringe Ai Meadows RN procedure 2mg/Nitro field 400mcg/Heparin 1500units) 11:45:48 Fentanyl I.V. 50 mcg Horace Washington for sedation Ai Meadows RN 11:45:55 Versed I.V. 1 mg Horace Washington for sedation Ai Meadows RN 11:48:15 Fentanyl I.V. 50 mcg Horace Washington for sedation Ai Meadows RN 11:48:19 Versed I.V. 1 mg Horace Felix for sedation Ai Meadows RN 11:48:26 Radial Cocktail I.A. 1 Horace Vu for (Verapamil syringe Ai Cloud MD vasodilation 2mg/Nitro 400mcg/Heparin 1500units) 11:54:01 Fentanyl I.V. 50 mcg Horace Eddyrey for sedation Ai Cloud MD 11:56:07 Fentanyl I.V. 50 mcg Horace Vu for sedation Ai Cloud MD Procedure Log Time Note 11:15:12 Jhoan ARNOLD(R) sent for patient. Start room use. 11:21:00 Signed procedure consent form obtained from patient. 11:21:06 Diagnostic Cath status Urgent 11:21:06 Time tracking: Regular hours (M-F 7:00 - 5:00) 11:21:10 Plan of Care:Hemodynamics will remain stable., Cardiac rhythm will remain stable., Comfort level will be maintained., Respiratory function will remain adequate., Patient/ family verbilizes understanding of procedure., Procedure tolerated without complication., Recovers from procedure without complications.. 11:26:15 Patient received from Med II to CCL 1 Alert and oriented. Tansferred to table in Supine position. 11:26:16 Warm blankets applied, and madhuri hugger turned on for patient comfort. 11:26:16 Correct patient and procedure confirmed by team. 11:26:23 H&P Date Dictated: 08/12/2018 Within 30 days and on chart.. 11:26:24 Pre-procedure instructions explained to patient. 11:26:24 Pre-op teaching completed and patient verbalized understanding. 11:26:25 Family in patients room. 11:26:27 Patient NPO since Midnight. 11:27:01 Patient allergic to No known allergies 11:36:49 ECG and BP/O2 sat monitors applied to patient. 11:36:51 Baseline sample Acquired. 11:36:57 Rhythm: sinus rhythm 11:36:59 Full Disclosure recording started 11:37:02 Is patient on blood thinner?Yes 11:37:04 ACC The patient was administered the following blood thiners within the last 24 hours: ACCPlavix 11:37:06 Patient diabetic? Yes. 11:37:07 If diabetic: On Metformin? No 11:37:10 Previous problem with sedation/anesthesia? No ? 11:37:11 Snore? Yes 11:37:12 Sleep apnea? No 11:37:13 Deviated septum? No 11:37:14 Opens mouth fully? Yes 11:37:15 Sticks out tongue? Yes 11:37:16 Airway obstruction? No ? 11:37:21 Dentures? Yes IN 11:37:31 Pre procedure: right dorsailis pedis pulse 1+ Palpable, but thready & weak; easily obliterated 11:37:34 Modified Chevy's test Ulnar < 7 seconds 11:37:36 Patient pain scale 0/10 ?. 11:37:56 IV right antecubital D/C'd due to infiltration. 11:39:58 IV started by Felix Meadows RN inleft hand with a 22 gauge IV catheter with 0.9% NaCl at KVO. 11:40:09 Lab results completed and on chart. 11:40:14 Right Radial & Right Groin area was prepped with chlora-prep and draped in sterile fashion 11:40:15 Alarms reviewed by R. N. 11:40:15 Sharps counted by scrub and verified by R.N. 11:40:40 Use device set Radial Dx or PCI 11:40:43 Tegaderm 4 x 4 (1626W) opened to sterile field. 11:40:43 ACIST Manifold (25447) opened to sterile field. 11:40:44 ACIST Hand Control (49119) opened to sterile field. 11:40:46 ACIST Syringe (84909) opened to sterile field. 11:40:46 Medline Cath Pack ([id number]) opened to sterile field. 11:40:47 Bag Decanter () opened to sterile field. 11:40:47 DIAGNOSTIC WIRE .035 260cm J wire (348264) opened to sterile field. 11:40:49 MBrace Wrist Support ([id number]) opened to sterile field. 11:40:52 SHEATH 6FR Slender (05-2563) opened to sterile field. 11:40:52 Vital chart was started 11:40:59 IV CATHETER 22g opened to sterile field. 11:41:21 --------ALL STOP TIME OUT------ 11:41:22 Final Timeout: patient, procedure, and site verified with staff and physician. All members of the team are in agreement. 11:41:24 Right Radial & Right Groin site verified by team. 11:41:27 Maximum allowable Isovue 370 dose 300ml. Physician notified. (300ml for normal creatinines. For patients with creatinine of 1.7 or higher multiply weight(kg) x 5 divided by creatinine.) 11:41:32 Fire Safety Assessment: A--An alcohol-based skin anteseptic being used preoperatively., C--Open oxygen or nitrous oxide is being used., D--An ESU, laser, or fiber-optic light is being used. 11:41:35 Physical assessment completed. ASA score P 2 - A patient with mild systemic disease as per Horace Cloud MD. 11:41:38 Sedation plan: IV Moderate Sedation Medication:Versed, Fentanyl 11:44:56 IV Extension Set opened to sterile field. 11:45:10 Oxygen 2 l/min etCO2 Nasal cannula was administered by Felix Meadows RN; Per physician; 11:45:17 Heparin Flush Bag (1000units/500ml NS) 2 bags added to field was administered by Felix Meadows RN; used for procedure; 11:45:25 0.9% NaCl 100 ml/hr I.V. was administered by Felix Meadows RN; Per physician; 11:45:33 Lidocaine 2% 20ml vial added to field was administered by Felix Meadows RN; for local anesthetic; 11:45:40 Radial Cocktail (Verapamil 2mg/Nitro 400mcg/Heparin 1500units) 1 syringe added to field was administered by Felix Meadows RN; used for procedure; 11:45:48 Fentanyl 50 mcg I.V. was administered by Felix Meadows RN; for sedation; 11:45:55 Versed 1 mg I.V. was administered by Felix Meadows RN; for sedation; 11:47:04 Procedure started. 11:47:08 Local anesthetic to right radial artery with Lidocaine 2% by Horace Cloud MD.INITIAL ACCESS ONLY 11:47:20 A 6 Fr Short sheath was inserted into the Right Radial artery 11:48:15 Fentanyl 50 mcg I.V. was administered by Felix Meadows RN; for sedation; 11:48:19 Versed 1 mg I.V. was administered by Felix Meadows RN; for sedation; 11:48:26 Radial Cocktail (Verapamil 2mg/Nitro 400mcg/Heparin 1500units) 1 syringe I.A. was administered by Horace Cloud MD; for vasodilation; 11:48:42 A DIAGNOSTIC Pigtail 5Fr catheter ([id number]) was advanced over the wire and used for Procedure. 11:49:28 LV gram done using MCKNIGHT 11:49:30 Injector settings: Ml/sec: 10, Volume: 20, 11:49:31 LV hemodynamics recorded. 11:49:35 EF : 60 % 11:49:38 Catheter exchanged over wire. 11:49:41 6 Fr XBLAD 3.5 guide catheter was inserted over the wire 11:49:52 GUIDE 6FR XBLAD 3.5 catheter ([id number]) opened to sterile field. 11:50:38 LCA angiography performed. 11:53:04 Wykoff Verrata Plus pressure wire (43374K) opened to sterile field. 11:53:05 INFLATOR Merit BasixCompak (AH9684) opened to sterile field. 11:53:18 FFR/IFR wire advanced. 11:54:01 Fentanyl 50 mcg I.V. was administered by Horace Cloud MD; for sedation; 11:54:20 Wire advanced across lesion. 11:55:01 DISTAL LAD lesion measured at 0.94 with IFR 11:55:07 Wire removed. 11:55:15 Guide catheter removed. 11:55:22 GUIDE 6FR AR 2.0 catheter (BL7NZ56) opened to sterile field. 11:55:33 6 Fr AR 2 guide catheter was inserted over the wire 11:56:06 RCA angiography performed. 11:56:07 Fentanyl 50 mcg I.V. was administered by Horace Cloud MD; for sedation; 11:57:32 FFR/IFR wire advanced. 11:57:39 TR BAND Large ([id number]) opened to sterile field. 11:58:01 Wire advanced across lesion. 11:58:45 RCA lesion measured at 1.03 with IFR 11:58:51 Wire removed. 11:58:51 Guide catheter removed. 11:59:02 Sheath removed intact; hemostasis achieved with Mechanical Compression to the Right Radial artery. 11:59:04 Procedure ended.(Physican Out) 11:59:27 Fluoroscopy time 03.30 minutes. 11:59:33 Fluoroscopy dose: 978 mGy 11:59:33 Flurop Dose total: 978 11:59:47 Contrast amount:Isovue 300 68ml. 11:59:48 Sharps counted by scrub and verified by R.N. 11:59:53 TR band inflated with 12cc of air. 12:00:19 Insertion/operative site no bleeding no hematoma. 12:00:23 Post right radial artery:stable, soft, clean and dry 12:00:24 Post Procedure Pulses reassessed and unchanged 12:00:27 Post procedure rhythm: unchanged. 12:00:29 Post-procedure physical assessment completed. ASA score P 2 - A patient with mild systemic disease as per Horace Cloud MD. 12:00:39 Estimated blood loss: 5 ml 12:00:41 Post procedure instruction explained to patient.Patient verbalizes understanding. 12:00:41 Patient needs reinforcement of post procedure teaching. 12:01:31 Procedure type changed to Cath procedure, Diagnostic procedure, LHC, LHC w/Coronaries, FFR/IVUS, FFR Initial, FFR Additional 12:02:02 Procedure and supply charges have been captured, reviewed, submitted and are correct. 12:02:13 Procedure Complication : No complications 12:02:21 Vital chart was stopped 12:02:21 See physician's report for complete and final results. 12:02:28 Report given to PCU. 12:02:32 Patient transfered to PCU with Stretcher. 12:02:35 Procedure ended. 12:02:35 Full Disclosure recording stopped 12:02:40 End room use (Document Last) Device Usage Item Name Manufacture Quantity Catalog Hospital Part Current Mini mal Lot# / Number Charge Number Stock Stock Serial# Code Tegaderm 4 3M 1 1626W 117336 377845 906131 5 x 4 (1626W) ACIST Acist 1 19258 305176 500861 238742 5 Manifold Medical (96141) Systems Inc ACIST Hand Acist 1 48575 909772 771577 122099 5 Control Medical (42671) Systems Inc ACIST Acist 1 43112 333548 133311 658750 20 Syringe Medical (19010) Systems Inc Medline Medline 1 [id number] 988948 99603 707211 5 Cath Pack ([id number]) Bag Microtek 1 2001S 293838 83088 806361 5 Decanter Medical Inc. () DIAGNOSTIC [facility] [place] 1 267518 598324 012978 142170 30 WIRE .035 260cm J wire (556722) MBrace Advanced 1 140-0250-00 668279 16169 936421 5 Wrist Vascular Support Dynamics ([id number]) SHEATH 6FR Terumo 1 [id number] 905090 224214 474477 5 Slender (80-1060) IV CATHETER B. Purcell 1 3007875-31 679040 067547 587550 5 22g IV Hospira 1 17771-07 519442 48536 381264 5 Extension Set DIAGNOSTIC Cardinal 1 [id number] 099969 525248 425431 5 Pigtail 5Fr Health catheter (007238M) GUIDE 6FR Cardinal 1 [id number] 092327 418221 203301 10 XBLAD 3.5 Health catheter (16067076) Wykoff Wykoff 1 48912J 204399 238390449 165542 5 Verrata Plus pressure wire (31639B) INFLATOR Merit 1 FQ9410 137643 005293 129529 15 [employer] Medical BasixCompak (MC3620) GUIDE 6FR Medtronic 1 [id number] 715064 63791 170621 1 AR 2.0 catheter (GK7ZO09) TR BAND Terumo 1 SEC01-JBR 332236 329166 607043 40 Large (AKH43GPM) Signature Audit [place] Stage Time Signature Unsigned Intra-Procedure 08/13/2018 Zak Conn 12:03:21 PM RT(R) Signatures Monitor : Zak Conn RT Signature : Date : Time : [address] [place] [address]
[2018-08-12 11:47] LABS: BASOPHILS 0.2 % (0-2); EOSINOPHILS 2.8 % (0-7); HEMATOCRIT 40.7 % (42.0-54.0); HEMOGLOBIN 14.4 g/dL (13.5-17.5); IMMATURE GRANULOCYTES 0.3 % (0-5); LYMPHOCYTES 26.6 % (15-50); MCH 30.1 pg (26.0-34.0); MCHC 35.4 g/dL (31.0-37.0); MEAN PLATELET VOLUME 8.9 fL (7.4-10.4); MONOCYTES 9.3 % (2-11); NEUTROPHILS 60.8 % (40-80); PLATELET COUNT 214 10x3/uL (130-400); RBC 4.79 10x6/uL (4.20-6.10); WBC 6.1 10x3/uL (4.8-10.8)
--- NOTE | 2018-08-12 11:59 | NUR ---
PT RATED PAIN 5/10 PRIOR TO FIRST PRN SL NITRO, FOLLOWING FIRST DOSE, PT STATES PAIN DECREASED TO 1-2/10. SECOND PRN SL NITRO ADMINISTERED AND PT CURRENTLY RATES PAIN 0/10. EDP NOTIFIED. PT SITTING IN SEMI-FOLWER'S, RESPIRATIONS EVEN AND UNLABORED. DENIES ANY NEEDS. CALL LIGHT IN REACH, WILL CONTINUE TO MONITOR.
[2018-08-12 12:00] LABS: ALBUMIN 4.3 g/dL (3.4-5.0); ALKALINE PHOSPHATASE 112 U/L (46-116); ALT (SGPT) 30 U/L (10-68); BILIRUBIN - TOTAL 0.81 mg/dL (0.2-1.3); CALC OSMOLALITY 283 mosm/kg (275-300); CALCIUM 9.2 mg/dL (8.5-10.1); CARBON DIOXIDE 27.9 mmol/L (21.0-32.0); CHLORIDE - SERUM 104 mmol/L (98-107); CREATININE - SERUM 1.1 mg/dL (0.6-1.3); GLUCOSE 155 mg/dL (74-106); POTASSIUM - SERUM 4.7 mmol/L (3.5-5.1); PROTEIN - SERUM 7.3 g/dL (6.4-8.2); SODIUM 140 mmol/L (136-145); UREA NITROGEN 17 mg/dL (7-18); eGFR NON AFRICAN AMERICAN 72 mL/min (90-120)
[2018-08-12 12:07] LABS: APTT 24.5 SECONDS (22.8-39.4)
[2018-08-12 12:10] LABS: LIPASE 160 U/L (73-393); MAGNESIUM - SERUM 1.9 mg/dL (1.8-2.4); PRO BNP 34 pg/mL (0-125); TROPONIN-I < 0.017 ng/mL (0.000-0.060)
[2018-08-12 12:29] LABS: INR 1.01 (0.85-1.17); PROTIME 12.8 SECONDS (11.6-15.0)
--- NOTE | 2018-08-12 12:55 | NUR ---
DR. RAI AT THE BEDSIDE TO SEE PT.
--- NOTE | 2018-08-12 13:44 | NUR ---
ROOM 2118 ASSIGNED AT 1321, ED NURSE ATTEMPTED TO CALL REPORT TO RECEIVING NURSE AT 1340. NURSE UNAVIALBLE, WILL ATTEMPT TO CALL REPORT AGAIN SHORTLY.
--- NOTE | 2018-08-12 15:27 | NUR ---
PT RECIEVED TO ROOM 2118. ALERT AND ORIENTED. DENIES ANY NEEDS AT PRESENT TIME. TELEMERTY SHOWS SR. WILL MONITOR
--- NOTE | 2018-08-12 17:17 | HP ---
PATIENT: EVER MAS MEDICAL RECORD: [id number] ACCOUNT: [id number] LOCATION:[address] : 59 ADMISSION DATE: 08/12/18 PCP: SUSAN PUGH MD HISTORY AND PHYSICAL EXAMINATION DIAGNOSES: 1. Unstable angina. 2. Coronary artery disease. 3. Previous multivessel PTCA stent times 4. 4. Hypertension. 5. Gastroesophageal reflux disease. 6. Noninsulin-dependent diabetes. HISTORY OF PRESENT ILLNESS: Mr. Mas is known to us with past history of coronary artery disease, 4 PTCA stents in the past, last being December, who presents with increasing episodes of chest discomfort, it has been going on for over a month. He was in [place], had a cardiac catheterization at [facility], but no intervention was done at that time. We are trying to get these records. He has continued to have escalating chest pain, it is just like that of his previous angina. He is on maximal medical therapy with calcium channel robin, beta-robin, ARB long-acting nitrate as well as a diuretic and continue to progress with chest pain despite these. He does have a history of GERD for which he is on Protonix, Zantac, and Carafate as well. His pain was relieved with sublingual nitro. It is now returning. PHYSICAL EXAMINATION: GENERAL APPEARANCE: Well-nourished, well-developed, appears stated age. Level of distress, comfortable. PSYCHIATRIC: Mental status, alert, normal affect. Orientation, oriented to time, place and person. EYES: Lids and conjunctiva, noninjected. No discharge, no pallor. ENT: Lips, teeth, gums, normal dentition. Oropharynx, no cyanosis, no pallor. NECK: Carotid arteries, bilateral normal upstroke, no bruits, no thrills. JUGULAR VEINS: No jugular venous pressure or distention. CERVICAL LYMPH NODES: Nontender, nonenlarged. THYROID: Not enlarged. Nontender. No nodules. LUNGS: Respiratory effort, unlabored. CHEST: Normal curvature. No thoracic deformity. No chest wall tenderness. Percussion, resonant. Auscultation, clear. No wheezes, no rales, no rhonchi. CARDIOVASCULAR: Precordial exam, nondisplaced. No heaves or pericardial thrills. Rate and rhythm, regular. Heart sounds, normal S1, normal S2. No S3, no gallop, no rub. Systolic murmur, not heard. Diastolic murmur, not heard. EXTREMITIES: No cyanosis, no edema. Peripheral pulses, full and equal in all extremities, except as noted. No bruits appreciated. ABDOMEN: Soft, nondistended. Normal aorta. No bruit. Nontender. No masses. Liver, nontender, no hepatomegaly. Spleen, nontender, no splenomegaly. MUSCULOSKELETAL: No joint tenderness. No joint swelling. No erythema. NEUROLOGICAL: Normal gait, normal strength, normal tone. SKIN: Warm and dry. OVERALL IMPRESSION: Anginal chest discomfort in an unstable escalating fashion. We will try to get the records from the [facility] to see what the coronary anatomy was 2 months ago, but it is concerning in this patient with a past history of multivessel PTCA stent. He is having chest pain just like that of his previous angina. We will admit him. Continue to maximize his medical HISTORY AND PHYSICAL [id number] EVER MAS therapy and see how he does clinically as well as see his troponin spring. TRANSINT:[id number] Voice Confirmation ID: [id number] DOCUMENT ID: [id number] MICHELLE RAI MD at 1717 CC: [id number] DICTATION DATE: 08/12/18 1301 WATCH TRAIN ASSEMBLER: 08/12/18 1323 ADM IN [place] [id number] [place] [id number]
[2018-08-12] MEDS ORDERED: RANITIDINE HCL150 M1 PO (17:52)
[2018-08-12] MEDS ORDERED: CRESTOR5 MG PO (17:53)
[2018-08-12] MEDS ORDERED: PAXIL20 MG PO (17:55)
[2018-08-12] MEDS ORDERED: ISOSORBIDE MONO30 M1 PO (17:55)
[2018-08-12] MEDS ORDERED: NORVASC10 MG PO (17:58)
[2018-08-12] MEDS ORDERED: PROTONIX FOR OR40 MG PT (17:59)
[2018-08-12] MEDS ORDERED: PLAVIX75 MG PO (18:01)
[2018-08-12] MEDS ORDERED: MOBIC7.5 MG PO (18:01)
--- NOTE | 2018-08-12 19:37 | NUR ---
RESUMING PATIENT CARE. PATIENT IS ALERT AND ORIENTED, SITTING UP IN BED. RESPIRATIONS ARE EVEN AND UNLABORED. DENIES NEEDS. NO S/S OF DISTRESS. NO C/O PAIN. CALL LIGHT WITHIN REACH. WILL CPOC.
[2018-08-13 00:08] VITALS: BP 128/71
[2018-08-13 04:00] VITALS: BP 128/73
[2018-08-13 08:44] VITALS: BP 125/86
--- NOTE | 2018-08-13 09:45 | NUR ---
CONSENTS SIGNED FOR [facility]. WILL CONT. PLAN OF CARE.
--- NOTE | 2018-08-13 11:30 | NUR ---
PRE-OPS GIVEN. TO WEBFED OFFSET PRESS OPERATOR BY BED.
--- NOTE | 2018-08-13 12:18 | NUR ---
RECIEVED TO ROOM VIA STRETCHER FROM CORE PILER WITH TR BAND TO R/WRIST CDI NO BLEEDING OR HEMATOMA NOTED. PATIENT CONNECTED TO MONITOR FOR OBSERVATION WITH HR 67 BP 158/96
--- NOTE | 2018-08-13 12:36 | NUR ---
TR BAND REMAINS CDI WITH NO BLEEDING OR HEMATOMA NOTED. FAMILY IS PRESENT AT BEDSIDE
--- NOTE | 2018-08-13 12:52 | NUR ---
TR BAND TO R/WRIST IS CDI WITH CHEST PAIN DENIED. PATIENT SITTING WITH HOB UP 30 SANDWICH AND SODA TO BEDSIDE
--- NOTE | 2018-08-13 13:25 | NUR ---
3 CC AIR REMOVED FROM TR BAND WITH NO BLEEDING OR HEMATOMA
--- NOTE | 2018-08-13 13:38 | NUR ---
3 CC AIR REMOVED FROM TR BAND WITH NO BLEEDING OR HEMATOMA NOTED PATIENT DENIED PAIN OR NEEDS
--- NOTE | 2018-08-13 13:58 | NUR ---
3 CC AIR REMOVED FROM TR BAND WITH NO BLEEDING OR HEMATOMA NOTED, PIV REMOVED WITH DRESSING APPLIED. VERBAL AND WRITTEN DISCHARGE GONE OVER WITH PATIENT
--- NOTE | 2018-08-13 14:21 | NUR ---
PIV REMOVED WITH DRESSING APPLIED. TR BAND REMOVED WITH DRESSING APPLIED. VERBAL AND WRITTEN DISCHARGE GONE OVER WITH PATIENT AND . CHEST PAIN IS DENIED. PATIENT LEFT VIA WC TO PARKING FOR TRANSPORT HOME NO DISTRESS
== END 2018-08-13 14:23 | disposition home or self-care (01) ==
LOC: D.ER 11:15 → D.M2 13:21 → OBSVTIME 13:25 → D.CLR 08-13 12:10
PROVIDERS: Family Medicine; ADMIT Internal Medicine Interventional Cardiology; ATTEND Internal Medicine Interventional Cardiology
DX: I25.119 Atherosclerotic heart disease of native coronary artery with unspecified angina pectoris (principal); I10 Essential (primary) hypertension; E78.5 Hyperlipidemia, unspecified

== ENCOUNTER → 2019-02-23 08:13 | Outpatient (CLI) | payer OTHER ==
[2018-08-12 15:03] VITALS: BMI 41.1
--- NOTE | ~2019-02-23 | ST ---
PATIENT:EVER MAS MEDICAL RECORD: [id number] SEX: M LOCATION:[facility] ORDER #: ADMISSION DATE: 02/23/19 AGE OF PATIENT: 63 REFERRING PHYSICIAN: INTERPRETING PHYSICIAN: MICHELLE RAI MD DATE OF SERVICE: 02/23/2019 INDICATIONS: Coronary artery disease, angina, shortness of breath, hypertension. He was exercised on standard Lexiscan protocol with 28 mCi of sestamibi injected at peak stress, 8 mCi used previously for rest images. FINDINGS: Gated SPECT reveals preserved ejection fraction 56% with decreased thickening and brightening throughout the inferior segments. SPECT imaging: Cardiolite was used as myocardial perfusion agent. There was a mixed perfusion defect inferiorly, partially fixed, partially reversible. However, there is reversibility in the lateral segments. This includes the apical lateral, mid lateral, basal lateral segments. The degree of reversibility throughout both defects is mild to moderate. The amount of myocardium involved is large. OVERALL IMPRESSION: This is an kkfibvzmobrg-yb-diag risk abnormal nuclear stress test. Reversibility throughout the inferior and lateral segments as well as a fixed perfusion defect inferiorly suggestive of hemodynamically significant coronary artery disease and possibly multivessel disease. TRANSINT:[id number] Voice Confirmation ID: [id number] DOCUMENT ID: [id number] MICHELLE RAI MD CC: SUSAN PUGH [id number] DICTATION DATE: 02/23/19 1546 CUPROUS CHLORIDE HELPER: 02/24/19 0725 [facility] CLI 02/23/[address] [facility] [address] [place] [address]
[~2019-02-23 08:13] MED LIST changes: +CRESTOR5 MG PO; +NORVASC10 MG PO; +PROTONIX FOR OR40 MG PT; +RANITIDINE HCL150 M1 PO
== END | disposition home or self-care (01) ==
LOC: D.HCCARDIO 08:13
PROVIDERS: ATTEND Internal Medicine Interventional Cardiology
DX: I25.119 Atherosclerotic heart disease of native coronary artery with unspecified angina pectoris (principal)

== ENCOUNTER 2019-03-03 07:09 | Outpatient (CLI) | payer OTHER ==
[~2019-03-03] VITALS: Ht 175.3 cm; Wt 127.3 kg
--- NOTE | ~2019-03-03 | HEMODYNAMI ---
PATIENT:EVER MAS MEDICAL RECORD: [id number] : 59 LOCATION:[facility] ADMISSION DATE: 03/03/19 Generatedon:03/03/201910:09 Patient name: EVER MAS Patient #: [id number] SSN: [id number] : 1955 Date of study: 03/03/2019 Page: Of Hemodynamic Procedure Report Patient Data Patient Demographics Procedure consent was obtained First Name: EVER Gender: Male Last Name: CHACE : 1955 [facility] Initial: LEOPOLDO Age: 63 year(s) Patient #: [id number] Race: SSN: [id number] Additional ID: [id number] Contact details Address: [address] [place] [address] State: [place] City: [place] Zip code: [address] Past Medical History History of disease Date Diagnosis Comments CAD Allergies: No known allergies Admission Admission Data Admission Date: 03/03/2019 Admission Time: 7:09 Arrival Date: 03/03/2019 Arrival Time: 0:00 Admit Source: Other Insurance Payor: Private health insurance [facility] #: [id number] Height (in.): 69 BSA: 2.39 (m2) Height (cm.): 175.26 BMI: 41.43 (kg/m2) Weight (lbs.): 280.58 Weight (kg.): 127.27 Lab Results Lab Result Date: 03/03/2019 Lab Result Time: 0:00 Biochemistry Name Units Result Min Max BUN mg/dl 15 --(--*-)-- 7 18 Creatinine mg/dl 1.1 --(--*-)-- 0.6 1.3 eGFR ml/min 72 *-(----)-- 90 120 NONAFRICAN CBC Name Units Result Min Max Hematocrit % 42.1 --(*---)-- 42 54 Hemoglobin g/dl 14.6 --(-*--)-- 13.5 17.5 Procedure Procedure Types Cath Procedure Diagnostic Procedure C LHC w/Coronaries w/Grafts FFR/IVUS FFR Initial Sedation Charges Moderate Sedation up to 15 minutes PCI Procedure Coronary Stent Coronary Stent Initial x2 Hemochron ACT Test Procedure Description Procedure Date Procedure Date: 03/03/2019 Procedure Start Time: 9:37 Procedure End Time: 9:58 Procedure Staff Name Function Mitchel Alvarez RN Nurse Horace Cloud MD Performing Physician Chelsea Castle RT Scrub Dandre Majano RT Machine Maintenance Servicer Cris Vera RT Monitor Procedure Data Cath Procedure Fluoroscopy Diagnostic fluoroscopy Total fluoroscopy Time: 3.8 time: 3.8 min min Diagnostic fluoroscopy Total fluoroscopy dose: dose: 1067 mGy 1067 mGy Contrast Material Contrast Material Type Amount (ml) Isovue 370 85 Entry Location Entry Primary Successful Side Size Upsize Upsize Entry Closure Lea ccessful Closure Location (Fr) 1 (Fr) 2 (Fr) Remarks Device Remarks Radial Right 6 Fr Mechanical artery Short Compression Estimated blood loss: 10 ml Diagnostic catheters Device Type Used For End Catheter Placement DIAGNOSTIC Scotrun 110cm 5 Procedure Fr catheter ([id number]) Procedure Complications No complications Procedure Medications Medication Administration Route Dosage Oxygen etCO2 Nasal cannula 2 l/min Lidocaine 2% added to field 20 Heparin Flush Bag added to field 2 bags (1000units/500ml NS) 0.9% NaCl I.V. 100 ml/hr Radial Cocktail I.A. 1 syringe (Verapamil 2mg/Nitro 400mcg/Heparin 1500units) Versed I.V. 2 mg Fentanyl I.V. 50 mcg Versed I.V. 2 mg Fentanyl I.V. 50 mcg Heparin Bolus I.V. 4000 units Hemodynamics Rest BSA: 2.39 (m2) HGB: 14.6 (g/dl) O2 Consumption: Estimated: 279.46 (ml/min) O2 Co nsumption indexed: Estimated:116.93 (ml/min/m) Heart Rate: 69 (bpm) Snapshots Pre Cath Intra NCS Post Cath Vital Signs Time Heart Resp SPO2 etCO2 NIBP (mmHg) Rhythm Pain Sedation Rate (ipm) (%) (mmHg) Status Level (bpm) 9:24:22 69 12 94 41.4 126/79(102) NSR 0 (11) 10(A) , No pain 9:28:30 71 12 95 34.6 132/88(102) NSR 0 (11) 10(A) , No pain 9:32:48 65 11 96 44.5 124/79(92) NSR 0 (11) 10(A) , No pain 9:37:04 66 10 94 48.2 127/77(105) NSR 0 (11) 9(A) , No pain 9:41:22 72 10 95 36.9 121/75(99) NSR 0 (11) 9(A) , No pain 9:45:28 84 10 95 0 118/79(109) NSR 0 (11) 9(A) , No pain 9:49:42 69 10 96 44.5 122/72(105) NSR 0 (11) 9(A) , No pain 9:53:54 73 11 96 43.7 119/83(99) NSR 0 (11) 9(A) , No pain 9:56:48 71 11 96 43.7 132/89(121) NSR 0 (11) 10(A) , No pain Medications Time Medication Route Dose Verified Delivered Reason Note s Effectiveness by by 9:24:40 Oxygen etCO2 2 l/min Horace Grullon used for Nasal Ai Alvarez RN procedure cannula 9:24:46 Lidocaine 2% added 20ml Horace Vu for local to vial Ai Cloud MD anesthetic field 9:24:51 Heparin Flush added 2 bags Horace Vu used for Bag to Ai Cloud MD procedure (1000units/500ml field NS) 9:24:59 0.9% NaCl I.V. 100 Horace Grullon Per physician ml/hr Ai Alvarez RN 9:33:05 Versed I.V. 2 mg Horace Grullon for sedation Ai Alvarez RN 9:33:12 Fentanyl I.V. 50 mcg Horace Grullon for sedation Ai Alvarez RN 9:39:20 Versed I.V. 2 mg Horace Gomezie for sedation Ai Alvarez RN 9:39:24 Fentanyl I.V. 50 mcg Horace Grullon for sedation Ai Alvarez RN 9:39:27 Radial Cocktail I.A. 1 Horace Vu for (Verapamil syringe Ai Cloud MD vasodilation 2mg/Nitro 400mcg/Hepari 9:44:14 Heparin Bolus I.V. 4000 Horace Grullon for veri fied units Tauth MD Alvarez RN anticoagulation with dr cloud Procedure Log Time Note 9:02:15 Informed consent obtained and on chart 9:02:39 Dandre Majano RT(R) sent for patient. Start room use. 9::59 Lab Result : Hemoglobin 14.6 g/dl 9::59 Lab Result : Hematocrit 42.1 % 9::59 Lab Result : eGFR NONAFRICAN 72 ml/min 9:: Lab Result : BUN 15 mg/dl 9::59 Lab Result : Creatinine 1.1 mg/dl 9:09:04 Lab results completed and on chart. 9::20 Stress Test: no; N/A ? 9:12:12 Time tracking: Regular hours (M-F 7:00 - 5:00) 9:12:19 Plan of Care:Hemodynamics will remain stable., Cardiac rhythm will remain stable., Comfort level will be maintained., Respiratory function will remain adequate., Patient/ family verbilizes understanding of procedure., Procedure tolerated without complication., Recovers from procedure without complications.. 9:12:26 Patient received from Pre/Post Procedure Room to CCL 1 Alert and oriented. Tansferred to table in Supine position. 9:12:27 Correct patient and procedure confirmed by team. 9:12:27 Warm blankets applied, and madhuri hugger turned on for patient comfort. 9:12:28 ECG and BP/O2 sat monitors applied to patient. 9:12:34 H&P Date Dictated: 03/03/2019 Within 30 days and on chart.. 9:12:35 Pre-op teaching completed and patient verbalized understanding. 9:12:35 Pre-procedure instructions explained to patient. 9:12:37 Family in waiting room. 9:12:39 Patient NPO since Midnight. 9:12:47 Patient allergic to No known allergies 9:12:49 Is the patient allergic to Iodine/contrast media? No. 9:12:51 Was the patient premedicated? Yes 9:12:53 Is patient on blood thinner?Yes 9:12:55 ACC The patient was administered the following blood thiners within the last 24 hours: ACCPlavix 9:12:57 Patient diabetic? Yes. 9:12:59 If diabetic: On Metformin? No 9:13:01 ----Pre-sedation anethsthesia assessment.---- 9:13:04 Previous problem with sedation/anesthesia? No ? 9:13:05 Snore? Yes 9:13:07 Sleep apnea? No 9:13:09 Deviated septum? No 9:13:10 Opens mouth fully? Yes 9:13:12 Sticks out tongue? Yes 9:13:15 Airway obstruction? No ? 9:13:26 Dentures? No ? 9:13:36 Patient pain scale 0/10 ?. 9:13:40 IV patent on arrival in left hand with 0.9% NaCl at [facility]. 9:13:54 Risk of Mortality: 0.1 9:13:57 Risk of blood transfusion: .1 9:13:59 Risk of ARTEMIO: .1 9:14:01 Sharps counted by scrub and verified by R.N. 9:14:01 Alarms reviewed by R. N. 9:14:09 Full Disclosure recording started 9:15:55 Arrival Date: 03/03/2019 12:00:00 AM 9:15:56 Admit Source: Other 9:15:59 Insurance Payor : Private health insurance 9:16:19 Patient Height : 69 inches 9:16:23 Patient Weight : 280.58 lbs 9:16:45 ACC Patient presents with Stable Angina CCS Anginal Class 2--Slight limitation of ordinary activity. 9:17:41 Pre procedure: right dorsailis pedis pulse 2+ Normal; easily identifiable; not easily obliterated 9:17:54 Modified Chevy's test Ulnar < 7 seconds 9:18:00 Right Radial & Right Groin area was prepped with chlora-prep and draped in sterile fashion 9:18:05 Use device set Radial Dx or PCI 9:18:06 ACIST Syringe (29346) opened to sterile field. 9:18:07 Medline Cath Pack ([id number]) opened to sterile field. 9:18:08 ACIST Hand Control (13312) opened to sterile field. 9:18:08 Bag Decanter () opened to sterile field. 9:18:09 ACIST Manifold (21641) opened to sterile field. 9:18:10 Tegaderm 4 x 4 (1626W) opened to sterile field. 9:18:11 MBrace Wrist Support ([id number]) opened to sterile field. 9:18:16 SHEATH 6FR RAIN (0087879) opened to sterile field. 9:18:16 EMERALD Guide Wire (486-261) opened to sterile field. 9:23:38 Vital chart was started 9:24:08 Baseline sample Acquired. 9:24:12 Rhythm: sinus rhythm 9:24:40 Oxygen 2 l/min etCO2 Nasal cannula was administered by Mitchel Alvarez RN; used for procedure; Verbal order read back and verified. 9:24:46 Lidocaine 2% 20ml vial added to field was administered by Horace Cloud MD; for local anesthetic; Verbal order read back and verified. 9:24:51 Heparin Flush Bag (1000units/500ml NS) 2 bags added to field was administered by Horace Cloud MD; used for procedure; Verbal order read back and verified. 9:24:59 0.9% NaCl 100 ml/hr I.V. was administered by Mitchel Alvarez RN; Per physician; Verbal order read back and verified. 9:32:43 --------ALL STOP TIME OUT------ 9:32:44 Final Timeout: patient, procedure, and site verified with staff and physician. All members of the team are in agreement. 9:32:47 Right Radial & Right Groin site verified by team. 9:32:51 Fire Safety Assessment: A--An alcohol-based skin anteseptic being used preoperatively., C--Open oxygen or nitrous oxide is being used., D--An ESU, laser, or fiber-optic light is being used. 9:32:55 Physical assessment completed. ASA score P 2 - A patient with mild systemic disease as per Horace Cloud MD. 9:33:00 2) 60-89 Mildly reduced kidney function, and other findings (as for stage 1) point to kidney disease. 9:33:03 Maximum allowable contrast dose (3.7 X eGFR X 0.75)200 ml. 9:33:05 Versed 2 mg I.V. was administered by Mitchel Alvarez RN; for sedation; Verbal order read back and verified. 9:33:09 Sedation plan: IV Moderate Sedation Medication:Versed, Fentanyl 9:33:12 Fentanyl 50 mcg I.V. was administered by Mitchel Alvarez RN; for sedation; Verbal order read back and verified. 9:37:01 Procedure started. 9:37:33 Local anesthetic to right femoral artery with Lidocaine 2% by Horace Cloud MD.INITIAL ACCESS ONLY 9:38:21 A 6 Fr Short sheath was inserted into the Right Radial artery 9:38:48 A DIAGNOSTIC Scotrun 110cm 5 Fr catheter ([id number]) was advanced over the wire and used for Procedure. 9:39:17 Injector settings: Ml/sec: 5, Volume: 15, 9:39:20 LV gram done using MCKNIGHT 9:39:20 Versed 2 mg I.V. was administered by Mitchel Alvarez RN; for sedation; Verbal order read back and verified. 9:39:24 Fentanyl 50 mcg I.V. was administered by Mitchel Alvarez RN; for sedation; Verbal order read back and verified. 9:39:27 Radial Cocktail (Verapamil 2mg/Nitro 400mcg/Heparin 1500units) 1 syringe I.A. was administered by Horace Cloud MD; for vasodilation; Verbal order read back and verified. 9:39:53 EF : 60 % 9:40:02 LCA angiography performed. 9:41:08 RCA angiography performed. 9:41:15 ACCDominant side:Right 9:42:18 Catheter removed. 9:42:20 Proceeding to intervention. 9:42:40 6 Fr xblad 3.5 guide catheter was inserted over the wire 9:42:47 INFLATOR Merit BasixCompak (FP5169) opened to sterile field. 9:42:48 [place] Verrata Plus pressure wire (15423L) opened to sterile field. 9:44:14 Heparin Bolus 4000 units I.V. was administered by Mitchel Alvarez RN; for anticoagulation; verified with dr cloud Verbal order read back and verified. 9:44:28 FFR/IFR wire advanced. 9:45:11 Wire advanced across lesion. 9:46:07 mLAD lesion measured at .82 with IFR 9:46:56 Pre PCI Site: [place] mLAD has 70% stenosis. 9:49:53 Place stent Inflation Number: 1 A MARLEE RX 2.5 x 38 stent ([id number]) was prepped and advanced across the Mid LAD . The stent was deployed at 13 GUERO for 0:00 (min:sec) . 9:50:13 Stent catheter was removed intact over wire. 9:50:25 Wire removed. 9:50:30 CHOICE PT Extra Support 182cm wire ([id number]) opened to sterile field. 9:50:44 CHOICE ES 182 wire advanced. 9:50:53 Wire redirected to CIRC. 9:50:59 Wire advanced across lesion. 9:51:17 Pre PCI Site: [place] Circ has 90% stenosis. 9:52:53 Place stent Inflation Number: 1 A MARLEE RX 2.75 x 08 stent ([id number]) was prepped and advanced across the Mid CX . The stent was deployed at 15 GUERO for 0:00 (min:sec) . 9:53:05 Wire removed. 9:53:05 Stent catheter was removed intact over wire. 9:53:06 Guide catheter removed. 9:53:28 TR BAND Large ([id number]) opened to sterile field. 9:53:35 Sheath removed intact; hemostasis achieved with Mechanical Compression to the Right Radial artery. 9:53:38 Procedure ended.(Physican Out) 9:53:52 Fluoroscopy time 03.80 minutes. 9:53:58 Fluoroscopy dose: 1067 mGy 9:53:58 Flurop Dose total: 1067 9:54:06 Dose Area Product 50473 mGy/cm. 9:54:10 Contrast amount:Isovue 370 85ml. 9:54:14 Maximum allowable dose exceeded? No. 9:54:15 Sharps counted by scrub and verified by R.N. 9:54:17 [place] band inflated with 10cc of air. 9:54:22 Post Procedure Pulses reassessed and unchanged 9:54:26 Post procedure: right dorsailis pedis pulse 2+ Normal; easily identifiable; not easily obliterated. 9:54:31 Post-procedure physical assessment completed. ASA score P 2 - A patient with mild systemic disease as per Horace Cloud MD. 9:54:34 Post procedure rhythm: unchanged. 9:54:38 Estimated blood loss: 10 ml 9:55:05 Post procedure instruction explained to patient.Patient verbalizes understanding. 9:55:06 Patient needs reinforcement of post procedure teaching. 9:56:58 Procedure type changed to Cath procedure, Diagnostic procedure, LHC, LHC w/Coronaries w/Grafts, FFR/IVUS, FFR Initial, Sedation Charges, Moderate Sedation up to 15 minutes, PCI procedure, Coronary Stent, Coronary Stent Initial x2, Hemochron ACT Test 9:58:35 Procedure and supply charges have been captured, reviewed, submitted and are correct. 9:58:40 Procedure Complication : No complications 9:58:42 Vital chart was stopped 9:58:44 [facility] Findings: MVD- PCI performed (see procedure note) 9:58:46 Operative report dictated upon procedure completion. 9:58:47 See physician's report for complete and final results. 9:58:48 Report given to Pre/Post Procedure Room. 9:58:51 Patient transfered to Pre/Post Procedure Room with Bed. 9:58:53 Full Disclosure recording stopped 9:58:53 Procedure ended. 9:59:03 ACC-PCI Only Patient was given prescriptions, or instructed by Horace Cloud MD to start/continue the following medications upon discharge: Plavix 9:59:04 End room use (Document Last) 9:59:20 ACT drawn and resulted at OUT FO RANGE seconds. (normal therapeutic range 180-240 seconds). 10:00:36 ACT drawn and resulted at ? seconds. (normal therapeutic range 180-240 seconds). Intervention Summary Intervention Notes Time ActionType Lesion and Equipment Used Action# Pressure Duration Attributes 9:49:53 Place stent Mid LAD MARLEE RX 2.5 x 1 13 00:00 38 stent ([id number]) 9:52:53 Place stent Mid CX MARLEE RX 2.75 x 1 15 00:00 08 stent ([id number]) Device Usage Item Name Manufacture Quantity Catalog Number Hospital Part Current Minimal Lot# / Charge Number Stock Stock Serial# Code ACIST Syringe Acist 1 68468 340025 055904 448425 20 (57655) Medical Systems Inc Medline Cath Medline 1 [id number] 161370 43107 360280 5 Pack ([id number]) Bag Decanter Microtek 1 2001S 262181 18081 213817 5 () Medical Inc. ACIST Hand Acist 1 54960 982345 911937 774429 5 Control Medical (83181) Systems Inc ACIST Manifold Acist 1 95971 296828 093226 039633 5 (56620) Medical Systems Inc Tegaderm 4 x 4 3M 1 1626W 839666 929911 374981 5 (1626W) MBrace Wrist Advanced 1 140-1540-00 037015 91186 860752 5 Support Vascular ([id number]) Dynamics EMERALD Guide Cardinal 1 502-455 410883 995620 718982 5 Wire (502-455) Health SHEATH 6FR Cardinal 1 6070415 410829 1789397 440924 5 RAIN (7876774) Health DIAGNOSTIC Terumo 1 40-5013 215288 833717 226546 5 Scotrun 110cm 5 Fr catheter (490057) INFLATOR Merit Merit 1 GC6605 733992 103499 560173 15 BasixTamatem Inc.[facility] Medical (XA8674) [place] 1 83120Q 857533 902907176 716525 5 Verrata Plus pressure wire (42631L) MARLEE RX 2.5 x Medtronic 1 [id number] 633368 7344383 818113 5 [id number] 38 stent ([id number]) CHOICE PT [place] 1 [id number] 502051 873964 630317 5 Extra Support Scientific 182cm wire ([id number]) MARLEE RX 2.75 x Medtronic 1 [id number] 126576 4573069 750530 5 [id number] 08 stent ([id number]) TR BAND Large Terumo 1 [id number] 194636 483974 572648 40 ([id number]) Signature Audit [place] Stage Time Signature Unsigned Intra-Procedure 03/03/2019 Cris Vera 9:59:31 AM RT(R) Intra-Procedure 03/03/2019 Mitchel Alvarez RN 10:00:36 AM Intra-Procedure 03/03/2019 Horace Cloud MD 10:00:51 AM 03/03/2019 10:05:48 AM Intra-Procedure 03/03/2019 Horace Cloud 10:09:06 AM [facility] [address] [facility], [facility]
[2019-03-03 07:38] VITALS: BP 120/77; Ht 175.3 cm; Wt 127.3 kg
[2019-03-03] MEDS ORDERED: INVOKANA100 MG PO (07:47)
[2019-03-03 07:57] LABS: BASOPHILS 0.2 % (0-2); EOSINOPHILS 3.1 % (0-7); HEMATOCRIT 42.1 % (42.0-54.0); HEMOGLOBIN 14.6 g/dL (13.5-17.5); IMMATURE GRANULOCYTES 0.5 % (0-5); LYMPHOCYTES 20.1 % (15-50); MCH 29.8 pg (26.0-34.0); MCHC 34.7 g/dL (31.0-37.0); MCV 85.9 fL (80.0-100.0); MEAN PLATELET VOLUME 8.7 fL (7.4-10.4); NEUTROPHILS 65.1 % (40-80); PLATELET COUNT 222 10x3/uL (130-400); RDW 12.9 % (11.5-14.5); WBC 6.1 10x3/uL (4.8-10.8)
[2019-03-03 08:06] LABS: ANION GAP 14.1 mmol/L (8-16); CALCIUM 8.8 mg/dL (8.5-10.1); CARBON DIOXIDE 26.9 mmol/L (21.0-32.0); CHOL - HDL RATIO 4.1 ratio (2.3-4.9); CREATININE - SERUM 1.1 mg/dL (0.6-1.3); LDL-HDL RATIO 2.4 ratio (1.5-3.5)
--- NOTE | 2019-03-03 10:10 | NUR ---
PT ARRIVED BY STRETCHER. PLACED ON MONITOR. ASSESSMENT COMPLETED. VSS. FAMILY AT BEDSIDE. CALL LIGHT WITHIN REACH.
--- NOTE | 2019-03-03 10:25 | NUR ---
RIGHT RADIAL Z BAND IN PLACE. NO BLEEDING/HEMATOMA NOTED. CALL LIGHT WITHIN REACH. VSS AT THIS TIME. PT TOLERATING SIPS OF WATER. DENIES NAUSEA/PAIN AT THIS TIME.
--- NOTE | 2019-03-03 10:55 | NUR ---
RIGHT RADIAL Z BAND IN PLACE. NO BLEEDING/HEMATOMA NOTED. CALL LIGHT WITHIN REACH. VSS. FAMILY AT BEDSIDE. NO NEEDS AT THIS TIME.
--- NOTE | 2019-03-03 11:30 | NUR ---
RIGHT WRIST Z BAND IN PLACE. NO BLEEDING/HEMATOMA NOTED. VSS. PT RESTING COMFORTABLY. CALL LIGHT WITHIN REACH.
--- NOTE | 2019-03-03 12:07 | NUR ---
PT RESTING COMFORTABLY. VSS. RIGHT RADIAL Z BAND IN PLACE. NO BLEEDING/HEMATOMA NOED.
--- NOTE | 2019-03-03 12:57 | NUR ---
PT RESTING COMFORTABLY. VSS. RIGHT WRIST Z BAND IN PLACE. NO BLEEDING/HEMATOMA NOTED. CALL LIGHT WITHIN REACH. VSS. FAMILY AT BEDSIDE AT THIS TIME. DENIES NAUSEA/PAIN. RIGHT HAND CAP REFILL < 3 SECS AND WARM TO TOUCH.
--- NOTE | 2019-03-03 13:15 | NUR ---
2cc OF AIR REMOVED FROM BAND. NO BLEEDING/HEMATOMA NOTED. CALL LIGHT WITHIN REACH. FAMILY AT BEDSIDE.
--- NOTE | 2019-03-03 13:28 | NUR ---
3cc OF AIR REMOVED FROM RIGHT RADIAL BAND. NO BLEEDING/HEMATOMA NOTED.
--- NOTE | 2019-03-03 13:45 | NUR ---
4cc OF AIR REMOVED FROM BAND. NO BLEEDING/HEMATOMA NOTED. CALL LIGHT WITHIN REACH. VSS AT THIS TIME. FAMILY AT BEDSIDE.
--- NOTE | 2019-03-03 13:50 | NUR ---
TR BAND REMOVED. DRESSING APPLIED. NO BLEEDING/HEMATOMA NOTED. RIGHT WRIST BRACE IN PLACE. PIV D/C'D WITH CATH TIP INTACT. TOLERATED WELL. PT INSTRUCTED TO GET UP AND DRESSED. FAMILY AT BEDSIDE TO ASSIST.
--- NOTE | 2019-03-03 14:00 | NUR ---
DISCUSSED DISCHARGE INSTRUCTIONS WITH PT AND PT'S FAMILY. THEY VOICED UNDERSTANDING.
--- NOTE | 2019-03-03 14:10 | NUR ---
PT AMBULATED TO RESTROOM. VOIDED WITHOUT DIFFICULTY. RIGHT WRIST DRESSING C/D/I. NO S/S OF HEMATOMA NOTED. PT TAKEN OUT TO VEHICLE BY WHEELCHAIR. NO S/S OF DISTRESS NOTED. ALL BELONGINGS AND PAPERWORK IN HAND.
--- NOTE | 2019-03-09 11:13 | OP ---
PATIENT NAME: EVER MAS MEDICAL RECORD: [id number] :59 LOCATION:D.CAT ADMISSION DATE: SURGEON: MICHELLE RAI MD DATE OF OPERATION: 03/03/2019 PROCEDURES: 1. PTCA stent LAD. 2. PTCA stent left circumflex. 3. IFR. 4. Left heart catheterization. 5. Selective coronary angiography. 6. Left ventriculogram. INDICATION: Angina and coronary artery disease. PROCEDURE PERFORMED: After informed consent was obtained and after a detailed explanation of risks, benefits as well as alternative therapies, the patient elected to proceed with angiogram and angioplasty. The right radial area was prepped and draped in normal sterile fashion. Right radial artery was cannulated via modified Seldinger technique with placement of 6-[place] sheath. All catheters exchanged through this sheath. FINDINGS: Left ventriculogram was performed in standard 30-degree MCKNIGHT view, reveals good cardiac wall motion, ejection fraction estimated at 60%. SELECTIVE CORONARY ANGIOGRAPHY: 1. Left main showed no significant angiographic disease. 2. Left anterior descending has 70% stenosis in the mid vessel. The stents in the proximal vessel are widely patent. IFR is abnormal. 3. The left circumflex has 90% stenosis of the first obtuse marginal. 4. The right coronary artery has mild irregularities to moderate irregularities, but no flow-limiting stenosis. PTCA STENT OF THE LAD AND CIRCUMFLEX: The LAD was addressed with a 2.5 x 38 mm Ino and the circumflex with a 2.75 x 8 mm [place]. Result was 0% residual stenosis. OVERALL IMPRESSION: Successful percutaneous transluminal coronary angioplasty stent left anterior descending and circumflex going from 70% to 90% initial stenosis to 0% residual. TRANSINT:[id number] Voice Confirmation ID: [id number] DOCUMENT ID: [id number] MICHELLE RAI MD at 1113 CC: [id number] DICTATION DATE: 03/03/19 0958 LAWNMOWER REPAIR MECHANIC: 03/03/19 1227 DEP CLI 03/03/19 [id number] [place] [address]
== END 2019-03-03 14:10 | disposition home or self-care (01) ==
LOC: D.CATH 07:09
PROVIDERS: ATTEND Internal Medicine Interventional Cardiology
DX: I25.119 Atherosclerotic heart disease of native coronary artery with unspecified angina pectoris (principal); I10 Essential (primary) hypertension; E11.9 Type 2 diabetes mellitus without complications; E78.5 Hyperlipidemia, unspecified; R51 Headache; R06.00 Dyspnea, unspecified; R94.31 Abnormal electrocardiogram [ECG] [EKG]